=== PATIENT | male | born 1930 | race Caucasian/White ===

== ENCOUNTER 2016-05-04 08:07 | Inpatient (IN) | payer OTHER, MEDICARE ==
--- NOTE | 2016-05-04 09:05 | ER Document Report ---
ED Respiratory Problem - General Chief Complaint: Congestion Stated Complaint: CONGESTION Notes: The patient is an 86-year-old male, past medical history hypertension, hyperlipidemia, presents with 3 months of cough, congestion and shortness of breath. He saw his primary care physician was placed on azithromycin 2 weeks ago. He finished a course, but is now having productive sputum and subjective fevers. He denies chest pain, leg swelling, rash, abdominal pain, nausea, vomiting, headache or recent travel. TRAVEL OUTSIDE OF THE [place] IN LAST 30 DAYS: No - Related Data Allergies/Adverse Reactions: No Known Allergies Allergy (Unverified 05/04/16 08:12) Past Medical History - General Information source: Patient - Social History Smoking Status: Former Smoker Chew tobacco use (# tins/day): No Frequency of alcohol use: None Drug Abuse: None Family History: Reviewed & Not Pertinent Patient has suicidal ideation: No Patient has homicidal ideation: No - Past Medical History Cardiac Medical History: Reports: Hx Hypercholesterolemia, Hx Hypertension Renal/ Medical History: Denies: Hx Peritoneal Dialysis Surgical Hx: Negative Review of Systems - Review of Systems Notes: REVIEW OF SYSTEMS: CONSTITUTIONAL: +fevers, -chills EENT: -eye pain, -difficulty swallowing, +nasal congestion CARDIOVASCULAR:-chest pain, -syncope. RESPIRATORY: +cough, +SOB GASTROINTESTINAL: -abdominal pain, -nausea, -vomiting, -diarrhea GENITOURINARY: -dysuria, -hematuria MUSCULOSKELETAL: -back pain, -neck pain SKIN: -rash or skin lesions. HEMATOLOGIC: -easy bruising or bleeding. LYMPHATIC: -swollen, enlarged glands. NEUROLOGICAL: -altered mental status or loss of consciousness, -headache, - neurologic symptoms PSYCHIATRIC: -anxiety, -depression. ALL OTHER SYSTEMS REVIEWED AND NEGATIVE. Physical Exam - Vital signs Vitals: Temp Pulse Resp BP Pulse Ox 97.5 F 120 H 18 129/62 H 95 05/04/16 08:12 05/04/16 08:12 05/04/16 08:12 05/04/16 08:12 05/04/16 08:12 - Notes Notes: PHYSICAL EXAMINATION: GENERAL: Well-appearing, well-nourished and in no acute distress. HEAD: Atraumatic, normocephalic. EYES: Pupils equal round and reactive to light, extraocular movements intact, sclera anicteric, conjunctiva are normal. ENT: nares patent, oropharynx clear without exudates. Moist mucous membranes. NECK: Normal range of motion, supple without lymphadenopathy LUNGS: Crackles over RLL. No respiratory distress. HEART: Tachycardic. ABDOMEN: Soft, nontender, normoactive bowel sounds. No guarding, no rebound. No masses appreciated. EXTREMITIES: Normal range of motion, no pitting or edema. No cyanosis. NEUROLOGICAL: Cranial nerves grossly intact. Normal speech, normal gait. Normal sensory, motor, and reflex exams. PSYCH: Normal mood, normal affect. SKIN: Warm, Dry, normal turgor, no rashes or lesions noted. Course - Re-evaluation Re-evalutation: Patient with right-sided pneumonia, leukocytosis and tachycardia. No respiratory distress at this time. Troponin is 0.08, but EKG does not show any active ischemia and he is not having chest pain. Suspect that this may be related to his tachycardia or chronic in nature, since we do not have an old troponin level. We will trend to see if there is any acute ischemia occurring. Since patient failed an outpatient antibiotic treatment for his pneumonia, patient will require admission for IV antibiotics and further monitoring of his respiratory status. 05/04/16 10:31 Spoke to Sadia (Hospitalist) and she has accepted patient. - Vital Signs Vital signs: Temp Pulse Resp BP Pulse Ox 97.5 F 120 H 18 129/62 H 95 05/04/16 08:12 05/04/16 08:12 05/04/16 08:12 05/04/16 08:12 05/04/16 08:12 - Laboratory Result Diagrams: 05/04/16 08:47 05/04/16 08:47 Laboratory results interpreted by me: 05/04/16 05/04/16 08:47 08:47 WBC 19.3 H Seg Neuts % (Manual) 94 H Lymphocytes % (Manual) 2 L Abs Neuts (Manual) 18.1 H Abs Lymphs (Manual) 0.4 L Creatinine 1.28 H Est GFR (Non-Af Amer) 53 L Glucose 139 H Creatine Kinase 35 L - Diagnostic Test Radiology reviewed: Image reviewed, Reports reviewed Radiology results interpreted by me: CXR: Right-sided pneumonia. - EKG Interpretation by Me EKG shows normal: Sinus rhythm, Asher, Intervals, QRS Complexes, ST-T Waves Rate: Tachycardia Discharge - Discharge Clinical Impression: Pneumonia Qualifiers: Pneumonia type: due to unspecified organism Laterality: right Lung location: lower lobe of lung Qualified Code(s): J18.1 - Lobar pneumonia, unspecified organism Sepsis Qualifiers: Sepsis type: sepsis due to unspecified organism Qualified Code(s): A41.9 - Sepsis, unspecified organism Condition: Stable Disposition: ADMITTED INPATIENT Admitting Provider: Hospitalist - [facility] Admitted: Telemetry
[2016-05-04] MEDS ORDERED: NORMAL SALINE 1000 ML 1,000 ML IV ONE (09:29)
[2016-05-04 09:33] LABS: HEMATOCRIT 45.8 % (37.9-51.0); HEMOGLOBIN 15.3 g/dL (13.5-17.0); HGB HCT DIFFERENCE 0.1; MEAN CORPUSCULAR HEMOGLOBIN 30.1 pg (27.0-33.4); MEAN CORPUSCULAR HGB CONC 33.5 g/dL (32.0-36.0); MEAN CORPUSCULAR VOLUME 90 fl (80-97); RED BLOOD COUNT 5.08 10^6/uL (4.35-5.55); RED CELL DISTRIBUTION WIDTH 13.5 % (11.5-14.0); WHITE BLOOD COUNT 19.3 10^3/uL (4.0-10.5)
[2016-05-04 09:46] LABS: ANION GAP 13 (5-19); BLOOD UREA NITROGEN 15 mg/dL (7-20); CALCIUM 9.9 mg/dL (8.4-10.2); CARBON DIOXIDE 26 mmol/L (22-30); CHLORIDE 98 mmol/L (98-107); CREATINE KINASE 35 U/L (55-170); CREATININE RESULT 1.28 mg/dL (0.52-1.25); GLUCOSE 139 mg/dL (75-110); POTASSIUM 3.7 mmol/L (3.6-5.0); SODIUM 137.4 mmol/L (137-145)
[2016-05-04 09:51] LABS: BASOPHILS % (MANUAL) 0 % (0-2); EOSINOPHILS % (MANUAL) 0 % (0-6); LYMPHOCYTES % (MANUAL) 2 % (13-45); TOTAL CELLS COUNTED 100
[2016-05-04 09:52] LABS: OVALOCYTES 1+; POIKILOCYTOSIS 1+; TEAR DROP CELLS SLIGHT
[2016-05-04] MEDS ORDERED: CEFTRIAXONE INJ 1000 MG VIAL IV ONE (09:58)
[2016-05-04] MEDS ORDERED: AZITHROMYCIN INJ 500 MG VIAL IV ONE (09:58)
[2016-05-04] MEDS ORDERED: LEVOFLOXACIN 750 MG/D5W RTU 150 ML IV ONE (09:59)
[2016-05-04] MEDS ORDERED: IPRATROPIUM/ALBUTEROL 0.5-2.5 MG/3 ML AMPUL NEB PRN (10:44)
--- NOTE | 2016-05-04 11:12 | EKG REPORT ---
SEVERITY:- OTHERWISE NORMAL ECG - SINUS TACHYCARDIA : Confirmed by: Carina Workman 04-May-2016 11:12:24
[2016-05-04] MEDS: CEFTRIAXONE 1 GM/D5W RTU 1 GM/50 ML RTUPB IV SCH (12:18)
[2016-05-04] MEDS ORDERED: LEVOFLOXACIN 500 MG/D5W RTU 500 MG/100 ML RTUPB IV SCH (14:00)
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
[2016-05-04] MEDS: HEPARIN SOD (PORCINE) 5,000 UNIT/ML 1 ML SYRINGE SUBCUT SCH ×2 (15:34→21:57)
[2016-05-04] MEDS: IPRATROPIUM/ALBUTEROL 0.5-2.5 MG/3 ML AMPUL NEB SCH ×2 (16:20→23:49)
[2016-05-04 17:21] LABS: APPEARANCE,URINE CLEAR; BILIRUBIN,URINE NEGATIVE (NEGATIVE); GLUCOSE, URINE NEGATIVE (NEGATIVE); KETONES,URINE NEGATIVE (NEGATIVE); LEUKOCYTE ESTERASE,URINE NEGATIVE (NEGATIVE); NITRITE,URINE NEGATIVE (NEGATIVE); PROTEIN,URINE NEGATIVE (NEGATIVE); URINE SPECIFIC GRAVITY 1.006; UROBILINOGEN,URINE NEGATIVE mg/dL (<2.0)
[2016-05-04] MEDS: LANSOPRAZOLE 15 MG TAB.RAP.DR PO SCH (17:27)
[2016-05-04] MEDS: GUAIFENESIN 600 MG TABLET.SA PO SCH (21:57)
[2016-05-05] MEDS: HEPARIN SOD (PORCINE) 5,000 UNIT/ML 1 ML SYRINGE SUBCUT SCH ×3 (05:53→21:56)
[2016-05-05] MEDS: LANSOPRAZOLE 15 MG TAB.RAP.DR PO SCH ×2 (05:53→17:34)
[2016-05-05 06:49] LABS: HEMATOCRIT 40.9 % (37.9-51.0); HEMOGLOBIN 13.8 g/dL (13.5-17.0); HGB HCT DIFFERENCE 0.5; MEAN CORPUSCULAR HEMOGLOBIN 30.5 pg (27.0-33.4); MEAN CORPUSCULAR HGB CONC 33.8 g/dL (32.0-36.0); MEAN CORPUSCULAR VOLUME 90 fl (80-97); RED BLOOD COUNT 4.53 10^6/uL (4.35-5.55); RED CELL DISTRIBUTION WIDTH 13.9 % (11.5-14.0); WHITE BLOOD COUNT 15.1 10^3/uL (4.0-10.5)
[2016-05-05 06:53] LABS: ANION GAP 12 (5-19); BLOOD UREA NITROGEN 11 mg/dL (7-20); CARBON DIOXIDE 23 mmol/L (22-30); CHLORIDE 105 mmol/L (98-107); CREATININE RESULT 1.06 mg/dL (0.52-1.25); GLUCOSE 107 mg/dL (75-110); POTASSIUM 3.8 mmol/L (3.6-5.0); SODIUM 139.6 mmol/L (137-145)
[2016-05-05 07:10] LABS: BASOPHILS % (MANUAL) 0 % (0-2); EOSINOPHILS % (MANUAL) 0 % (0-6); LYMPHOCYTES % (MANUAL) 5 % (13-45); TOTAL CELLS COUNTED 100
[2016-05-05 07:15] LABS: RBC MORPHOLOGY COMMENT NORMO-CYTIC/CHROMIC; TOXIC GRANULATION SLIGHT
[2016-05-05] MEDS: IPRATROPIUM/ALBUTEROL 0.5-2.5 MG/3 ML AMPUL NEB SCH ×2 (08:46→16:34)
[2016-05-05] MEDS: NIFEDIPINE 30 MG TAB.ER.24 PO SCH ×2 (09:17→21:55)
[2016-05-05] MEDS: GUAIFENESIN 600 MG TABLET.SA PO SCH ×2 (09:18→21:55)
[2016-05-05] MEDS: LISINOPRIL 10 MG TABLET PO SCH ×2 (09:18→21:55)
[2016-05-05] MEDS ORDERED: (PENDING PHARMACY ID) (Nifedipine [Nifedipine Er] 60 MG) PO SCH (10:00)
[2016-05-05] MEDS ORDERED: (PENDING PHARMACY ID) (Lisinopril [Prinivil] 20 MG) PO SCH (10:00)
[2016-05-05] MEDS: CEFTRIAXONE 1 GM/D5W RTU 1 GM/50 ML RTUPB IV SCH (11:51)
--- NOTE | 2016-05-05 15:14 | PDOC PROGRESS REPORT ---
Subjective Progress Note for:: 05/05/16 Subjective:: Patient is seen on morning rounds. He denies any significant shortness of breath. He does have a productive cough. Denies any fever or chills. He denies any chest pain, dizziness or headache. Denies any nausea, vomiting, or diarrhea. He denies any back pain, myalgias or arthralgias. Rest review of systems negative. Physical Exam Vital Signs: Temp Pulse Resp BP Pulse Ox 97.6 F 110 H 18 167/74 H 96 05/05/16 12:41 05/05/16 12:41 05/05/16 12:41 05/05/16 12:41 05/05/16 12:41 Intake & Output 05/04/16 05/05/16 05/06/16 06:59 06:59 06:59 Intake Total 1165 300 Output Total 600 200 Balance 565 100 Weight 64 kg General appearance: PRESENT: no acute distress, well-developed, well-nourished Head exam: PRESENT: atraumatic, normocephalic Eye exam: PRESENT: conjunctiva pink, EOMI, PERRLA. ABSENT: scleral icterus Ear exam: PRESENT: normal external ear exam Mouth exam: PRESENT: moist, tongue midline Neck exam: ABSENT: carotid bruit, JVD, lymphadenopathy, thyromegaly Respiratory exam: PRESENT: clear to auscultation edmundo. ABSENT: rales, rhonchi, wheezes Cardiovascular exam: PRESENT: RRR. ABSENT: diastolic murmur, rubs, systolic murmur Pulses: PRESENT: normal dorsalis pedis pul Vascular exam: PRESENT: normal capillary refill GI/Abdominal exam: PRESENT: normal bowel sounds, soft. ABSENT: distended, guarding, mass, organolmegaly, rebound, tenderness Rectal exam: PRESENT: deferred Extremities exam: PRESENT: full ROM. ABSENT: calf tenderness, clubbing, pedal edema Neurological exam: PRESENT: alert, awake, oriented to person, oriented to place , oriented to time, oriented to situation, CN II-XII grossly intact. ABSENT: motor sensory deficit Psychiatric exam: PRESENT: appropriate affect, normal mood. ABSENT: homicidal ideation, suicidal ideation Skin exam: PRESENT: dry, intact, warm. ABSENT: cyanosis, rash Results Laboratory Results: 05/05/16 06:04 05/05/16 06:04 05/04/16 05/05/16 05/05/16 16:57 06:04 06:04 WBC 15.1 H RBC 4.53 Hgb 13.8 Hct 40.9 MCV 90 MCH 30.5 MCHC 33.8 RDW 13.9 Plt Count 199 Seg Neutrophils % Not Reportable Lymphocytes % Not Reportable Monocytes % Not Reportable Eosinophils % Not Reportable Basophils % Not Reportable Absolute Neutrophils Not Reportable Absolute Lymphocytes Not Reportable Absolute Monocytes Not Reportable Absolute Eosinophils Not Reportable Absolute Basophils Not Reportable Sodium 139.6 Potassium 3.8 Chloride 105 Carbon Dioxide 23 Anion Gap 12 BUN 11 Creatinine 1.06 Est GFR ( Amer) > 60 Est GFR (Non-Af Amer) > 60 Glucose 107 Calcium 9.0 Urine Color STRAW Urine Appearance CLEAR Urine pH 6.0 Ur Specific [place] 1.006 Urine Protein NEGATIVE Urine Glucose (UA) NEGATIVE Urine Ketones NEGATIVE Urine Blood NEGATIVE Urine Nitrite NEGATIVE Ur Leukocyte Esterase NEGATIVE Urine WBC (Auto) 1 Urine RBC (Auto) 0 Impressions: Chest X-Ray 05/04/16 09:04 IMPRESSION: Airspace consolidation in the right mid and lower lung field with an associated small right pleural effusion. The appearance is consistent with a pneumonic infiltrate. I would recommend followup films to complete clearing to exclude an underlying process. Other findings as noted above Assessment & Plan - Diagnosis (1) Pneumonia Qualifiers: Pneumonia type: due to unspecified organism Laterality: right Lung location: lower lobe of lung Qualified Code(s): J18.1 - Lobar pneumonia, unspecified organism Is this a current diagnosis for this admission?: YesPlan: IV broad spectrum antibiotics, IV steroids, guafenisin, and nebulizer treatments. Blood cultures and sputum cultures pending (2) Sepsis Qualifiers: Sepsis type: sepsis due to unspecified organism Qualified Code(s): A41.9 - Sepsis, unspecified organism Is this a current diagnosis for this admission?: YesPlan: Patient presents with tachycardia, mild tachypnea, leukocytosis, and hypoxemia. He had been on a ten-day course of azithromycin prior to admission. Blood and sputum cultures are pending. Tachycardia, hypotension and hypoxemia have resolved. (3) Dyslipidemia Is this a current diagnosis for this admission?: YesPlan: Continue statin (4) Essential (primary) hypertension Is this a current diagnosis for this admission?: YesPlan: Continue current medications he is presently normotensive we'll hold diuretic - Time Time Spent with patient: 25-34 minutes Critical Time spent with patient: 15-24 minutes Medications reviewed and adjusted accordingly: Yes Anticipated discharge: Home
[2016-05-05] MEDS: LEVOFLOXACIN 250 MG TABLET PO SCH (17:34)
[2016-05-05] MEDS: SIMVASTATIN 40 MG TABLET PO SCH (17:34)
[2016-05-05] MEDS: NORMAL SALINE 1000 ML 1,000 ML IV PRN (22:57)
[2016-05-06] MEDS: IPRATROPIUM/ALBUTEROL 0.5-2.5 MG/3 ML AMPUL NEB SCH ×3 (00:12→16:16)
[2016-05-06] MEDS: BENZONATATE 100 MG CAPSULE PO PRN ×2 (03:59→15:47)
[2016-05-06] MEDS: LANSOPRAZOLE 15 MG TAB.RAP.DR PO SCH ×2 (05:25→16:00)
[2016-05-06] MEDS: HEPARIN SOD (PORCINE) 5,000 UNIT/ML 1 ML SYRINGE SUBCUT SCH ×3 (05:25→21:17)
[2016-05-06 06:07] LABS: HEMATOCRIT 40.1 % (37.9-51.0); HEMOGLOBIN 13.6 g/dL (13.5-17.0); HGB HCT DIFFERENCE 0.7; MEAN CORPUSCULAR HEMOGLOBIN 30.5 pg (27.0-33.4); MEAN CORPUSCULAR HGB CONC 33.9 g/dL (32.0-36.0); MEAN CORPUSCULAR VOLUME 90 fl (80-97); RED BLOOD COUNT 4.46 10^6/uL (4.35-5.55); RED CELL DISTRIBUTION WIDTH 13.7 % (11.5-14.0); WHITE BLOOD COUNT 16.3 10^3/uL (4.0-10.5)
[2016-05-06 06:38] LABS: BASOPHILS % (MANUAL) 0 % (0-2); EOSINOPHILS % (MANUAL) 0 % (0-6); LYMPHOCYTES % (MANUAL) 2 % (13-45); TOTAL CELLS COUNTED 100
[2016-05-06 06:39] LABS: RBC MORPHOLOGY COMMENT NORMO-CYTIC/CHROMIC
[2016-05-06] MEDS: GUAIFENESIN 600 MG TABLET.SA PO SCH ×2 (10:26→21:17)
[2016-05-06] MEDS: ACETAMINOPHEN 325 MG TABLET PO PRN ×2 (10:27→15:46)
[2016-05-06] MEDS: NIFEDIPINE 30 MG TAB.ER.24 PO SCH ×2 (10:27→21:17)
[2016-05-06] MEDS: LISINOPRIL 10 MG TABLET PO SCH ×2 (10:27→21:17)
[2016-05-06] MEDS ORDERED: HYDROCORTISONE 1% OINTMENT 28.35 GM TP PRN (11:13)
[2016-05-06] MEDS ORDERED: MORPHINE SULFATE 10 MG/ML INJ IV ONE (13:00)
--- NOTE | 2016-05-06 15:53 | PDOC PROGRESS REPORT ---
Subjective Progress Note for:: 05/06/16 Subjective:: Patient is seen on morning rounds. He denies any significant shortness of breath. He does have a productive cough. Denies any fever or chills. He denies any chest pain, dizziness or headache. He continues to have diminished breath sounds on the right no improvement with antibiotics. Repeat chest x-ray today shows collapse of the right lower lobe, with pleural effusion. Certainly concerned there could be an endobronchial obstruction or lesion. Patient does admit to a 10-15 pound weight loss over the last 3 months with this cough. [address] of the chest was obtained with IV contrast which showed complete collapse of the right lower lobe, approximately thousand cc plural effusion. Physical Exam Vital Signs: Temp Pulse Resp BP Pulse Ox 98.0 F 112 H 28 H 151/65 H 91 L 05/06/16 11:46 05/06/16 11:46 05/06/16 11:46 05/06/16 11:46 05/06/16 11:46 Intake & Output 05/05/16 05/06/16 05/07/16 06:59 06:59 06:59 Intake Total 1165 3004 270 Output Total 600 1190 150 Balance 565 1814 120 Weight 64 kg 64.7 kg General appearance: PRESENT: no acute distress, well-developed, well-nourished Head exam: PRESENT: atraumatic, normocephalic Eye exam: PRESENT: conjunctiva pink, EOMI, PERRLA. ABSENT: scleral icterus Ear exam: PRESENT: normal external ear exam Mouth exam: PRESENT: moist, tongue midline Neck exam: ABSENT: carotid bruit, JVD, lymphadenopathy, thyromegaly Respiratory exam: PRESENT: decreased breath sounds - right lower hemithorax. ABSENT: rales, rhonchi, wheezes Cardiovascular exam: PRESENT: bradycardia Pulses: PRESENT: normal dorsalis pedis pul Vascular exam: PRESENT: normal capillary refill GI/Abdominal exam: PRESENT: normal bowel sounds, soft. ABSENT: distended, guarding, mass, organolmegaly, rebound, tenderness Rectal exam: PRESENT: deferred Extremities exam: PRESENT: full ROM. ABSENT: calf tenderness, clubbing, pedal edema Neurological exam: PRESENT: alert, awake, oriented to person, oriented to place , oriented to time, oriented to situation, CN II-XII grossly intact. ABSENT: motor sensory deficit Psychiatric exam: PRESENT: appropriate affect, normal mood. ABSENT: homicidal ideation, suicidal ideation Skin exam: PRESENT: dry, intact, warm. ABSENT: cyanosis, rash Results Laboratory Results: 05/06/16 05:27 05/05/16 06:04 05/06/16 05:27 WBC 16.3 H RBC 4.46 Hgb 13.6 Hct 40.1 MCV 90 MCH 30.5 MCHC 33.9 RDW 13.7 Plt Count 212 Seg Neutrophils % Not Reportable Lymphocytes % Not Reportable Monocytes % Not Reportable Eosinophils % Not Reportable Basophils % Not Reportable Absolute Neutrophils Not Reportable Absolute Lymphocytes Not Reportable Absolute Monocytes Not Reportable Absolute Eosinophils Not Reportable Absolute Basophils Not Reportable Impressions: Chest X-Ray 05/06/16 00:00 IMPRESSION: Dense consolidation in the right lower lobe superior segment. Underlying lung mass or endobronchial lesion could not be excluded. Right pleural effusion. Recommend CT chest with IV contrast if possible Chest CT 05/06/16 11:03 IMPRESSION: Extensive airspace disease in the right lung. Subpulmonic pleural effusion. Assessment & Plan - Diagnosis (1) Pneumonia Qualifiers: Pneumonia type: due to unspecified organism Laterality: right Lung location: lower lobe of lung Qualified Code(s): J18.1 - Lobar pneumonia, unspecified organism Is this a current diagnosis for this admission?: YesPlan: IV broad spectrum antibiotics, IV steroids, guafenisin, and nebulizer treatments. Blood cultures are negative at 48 hours. Has not had a fever. Certainly this could be postobstructive endobronchial tumor. Patient will need to undergo bronchoscopy for diagnosis. Patient does not wish transfer out of town for the weekend. We'll consult pulmonary here. (2) Sepsis Qualifiers: Sepsis type: sepsis due to unspecified organism Qualified Code(s): A41.9 - Sepsis, unspecified organism Is this a current diagnosis for this admission?: YesPlan: Patient presents with tachycardia, mild tachypnea, leukocytosis, and hypoxemia. He had been on a ten-day course of azithromycin prior to admission. Blood and sputum cultures are pending. Tachycardia, hypotension and hypoxemia have resolved. (3) Dyslipidemia Is this a current diagnosis for this admission?: YesPlan: Continue statin (4) Essential (primary) hypertension Is this a current diagnosis for this admission?: YesPlan: Continue current medications he is presently normotensive we'll hold diuretic - Time Time Spent with patient: 25-34 minutes Critical Time spent with patient: 15-24 minutes Medications reviewed and adjusted accordingly: Yes
[2016-05-06] MEDS: MORPHINE SULFATE 10 MG/ML INJ IV PRN ×2 (16:00→23:02)
[2016-05-06] MEDS: SIMVASTATIN 40 MG TABLET PO SCH (17:28)
[2016-05-06] MEDS: LEVOFLOXACIN 250 MG TABLET PO SCH (17:28)
[2016-05-06] MEDS: TRAZODONE HCL 50 MG TABLET PO SCH (21:17)
[2016-05-07] MEDS: IPRATROPIUM/ALBUTEROL 0.5-2.5 MG/3 ML AMPUL NEB SCH ×4 (00:09→23:40)
[2016-05-07] MEDS: NORMAL SALINE 1000 ML 1,000 ML IV PRN (00:16)
[2016-05-07] MEDS: HEPARIN SOD (PORCINE) 5,000 UNIT/ML 1 ML SYRINGE SUBCUT SCH ×3 (05:10→22:15)
[2016-05-07] MEDS: LANSOPRAZOLE 15 MG TAB.RAP.DR PO SCH ×2 (05:10→17:13)
[2016-05-07] MEDS ORDERED: LEVOFLOXACIN 250 MG TABLET PO SCH (09:02)
[2016-05-07] MEDS: GUAIFENESIN 600 MG TABLET.SA PO SCH ×2 (09:19→22:15)
[2016-05-07] MEDS: NIFEDIPINE 30 MG TAB.ER.24 PO SCH ×2 (09:19→22:15)
[2016-05-07] MEDS: LISINOPRIL 10 MG TABLET PO SCH ×2 (09:19→22:15)
[2016-05-07] MEDS ORDERED: POLYETHYLENE GLYCOL 3350 POWDER 17 GM/1 PACKET PO PRN (09:25)
--- NOTE | 2016-05-07 09:54 | PDOC PROGRESS REPORT ---
Subjective Progress Note for:: 05/07/16 Subjective:: Patient is seen on morning rounds. He denies any significant shortness of breath. He is no longer coughing productively. Denies any fever or chills. He denies any chest pain, dizziness or headache. He continues to have diminished breath sounds on the right no improvement with antibiotics. Repeat chest x-ray yesterday showed collapse of the right lower lobe, with pleural effusion. Certainly concerned there could be an endobronchial obstruction or lesion. Patient does admit to a 10-15 pound weight loss over the last 3 months with this cough. CT of the chest was obtained with IV contrast which showed complete collapse of the right lower lobe, with approximately thousand cc plural effusion. Physical Exam Vital Signs: Temp Pulse Resp BP Pulse Ox 98.3 F 110 H 24 H 134/58 H 91 L 05/07/16 07:52 05/07/16 07:52 05/07/16 07:52 05/07/16 07:52 05/07/16 07:52 Intake & Output 05/06/16 05/07/16 05/08/16 06:59 06:59 06:59 Intake Total 3004 1325 Output Total 1190 625 Balance 1814 700 Weight 64.7 kg 68.3 kg General appearance: PRESENT: no acute distress, thin, well-developed Head exam: PRESENT: atraumatic, normocephalic Eye exam: PRESENT: conjunctiva pink, EOMI, PERRLA. ABSENT: scleral icterus Ear exam: PRESENT: normal external ear exam Mouth exam: PRESENT: moist, tongue midline Neck exam: ABSENT: carotid bruit, JVD, lymphadenopathy, thyromegaly Respiratory exam: PRESENT: chest wall tenderness - right base, decreased breath sounds, rhonchi, unlabored Cardiovascular exam: PRESENT: RRR. ABSENT: diastolic murmur, rubs, systolic murmur Pulses: PRESENT: normal dorsalis pedis pul Vascular exam: PRESENT: normal capillary refill GI/Abdominal exam: PRESENT: normal bowel sounds, soft. ABSENT: distended, guarding, mass, organolmegaly, rebound, tenderness Rectal exam: PRESENT: deferred Extremities exam: PRESENT: full ROM. ABSENT: calf tenderness, clubbing, pedal edema Musculoskeletal exam: PRESENT: ambulatory Neurological exam: PRESENT: alert, awake, oriented to person, oriented to place , oriented to time, oriented to situation, CN II-XII grossly intact. ABSENT: motor sensory deficit Psychiatric exam: PRESENT: appropriate affect, normal mood. ABSENT: homicidal ideation, suicidal ideation Skin exam: PRESENT: dry, intact, warm. ABSENT: cyanosis, rash Results Laboratory Results: 05/06/16 05:27 05/05/16 06:04 Impressions: Chest X-Ray 05/06/16 00:00 IMPRESSION: Dense consolidation in the right lower lobe superior segment. Underlying lung mass or endobronchial lesion could not be excluded. Right pleural effusion. Recommend CT chest with IV contrast if possible Chest CT 05/06/16 11:03 IMPRESSION: Extensive airspace disease in the right lung. Subpulmonic pleural effusion. Assessment & Plan - Diagnosis (1) Pneumonia Qualifiers: Pneumonia type: due to unspecified organism Laterality: right Lung location: lower lobe of lung Qualified Code(s): J18.1 - Lobar pneumonia, unspecified organism Is this a current diagnosis for this admission?: YesPlan: Blood cultures are negative, no sputum culture as of yet. Covered with IV broad spectrum antibiotics, deescalated to levaquin po, steroids, guafenisin, and nebulizer treatments. Has not had a fever. Patient will likely need to undergo bronchoscopy. Pulmonary consult placed for Dr Menjivar. Patient does not wish transfer out of [facility] for care. (2) Sepsis Qualifiers: Sepsis type: sepsis due to unspecified organism Qualified Code(s): A41.9 - Sepsis, unspecified organism Is this a current diagnosis for this admission?: YesPlan: Patient presents with tachycardia, mild tachypnea, leukocytosis, and hypoxemia. He had been on a ten-day course of azithromycin prior to admission. Blood are negative. Tachycardia, hypotension and hypoxemia have resolved. (3) Dyslipidemia Is this a current diagnosis for this admission?: YesPlan: Continue statin (4) Essential (primary) hypertension Is this a current diagnosis for this admission?: YesPlan: Continue current medications he is presently normotensive we'll hold diuretic - Time Time Spent with patient: 25-34 minutes Critical Time spent with patient: 15-24 minutes Medications reviewed and adjusted accordingly: Yes
[2016-05-07] MEDS ORDERED: BISACODYL 10 MG SUPP.RECT PR ONE (10:15)
[2016-05-07] MEDS: DOCUSATE SODIUM 100 MG CAPSULE PO SCH ×2 (10:25→17:13)
[2016-05-07] MEDS: ACETAMINOPHEN 325 MG TABLET PO PRN ×2 (11:43→17:13)
[2016-05-07] MEDS: SIMVASTATIN 40 MG TABLET PO SCH (17:13)
[2016-05-07] MEDS: LEVOFLOXACIN 500 MG TABLET PO SCH (17:13)
[2016-05-07] MEDS: TRAZODONE HCL 50 MG TABLET PO SCH (22:15)
[2016-05-07] MEDS: BENZONATATE 100 MG CAPSULE PO PRN (22:40)
[2016-05-08 05:19] LABS: HEMATOCRIT 37.5 % (37.9-51.0); HEMOGLOBIN 12.7 g/dL (13.5-17.0); HGB HCT DIFFERENCE 0.6; MEAN CORPUSCULAR HEMOGLOBIN 30.2 pg (27.0-33.4); MEAN CORPUSCULAR VOLUME 89 fl (80-97); RED BLOOD COUNT 4.22 10^6/uL (4.35-5.55); RED CELL DISTRIBUTION WIDTH 14.1 % (11.5-14.0); WHITE BLOOD COUNT 15.9 10^3/uL (4.0-10.5)
[2016-05-08] MEDS: HEPARIN SOD (PORCINE) 5,000 UNIT/ML 1 ML SYRINGE SUBCUT SCH ×3 (05:22→21:43)
[2016-05-08] MEDS: LANSOPRAZOLE 15 MG TAB.RAP.DR PO SCH ×2 (05:22→17:09)
[2016-05-08 05:23] LABS: ALANINE AMINOTRANSFERASE 26 U/L (21-72); ALBUMIN 2.6 g/dL (3.5-5.0); ALKALINE PHOSPHATASE 90 U/L (38-126); ANION GAP 12 (5-19); ASPARTATE AMINO TRANSFERASE 29 U/L (17-59); BILIRUBIN,TOTAL 0.6 mg/dL (0.2-1.3); BLOOD UREA NITROGEN 22 mg/dL (7-20); CALCIUM 9.2 mg/dL (8.4-10.2); CARBON DIOXIDE 23 mmol/L (22-30); CHLORIDE 103 mmol/L (98-107); CREATININE RESULT 1.24 mg/dL (0.52-1.25); GLUCOSE 107 mg/dL (75-110); POTASSIUM 3.7 mmol/L (3.6-5.0); SODIUM 137.7 mmol/L (137-145); TOTAL PROTEIN 4.8 g/dL (6.3-8.2)
[2016-05-08] MEDS: ACETAMINOPHEN 325 MG TABLET PO PRN (05:30)
[2016-05-08 06:43] LABS: BASOPHILS % (MANUAL) 0 % (0-2); EOSINOPHILS % (MANUAL) 0 % (0-6); LYMPHOCYTES % (MANUAL) 2 % (13-45); TOTAL CELLS COUNTED 100
[2016-05-08 06:44] LABS: ANISOCYTOSIS SLIGHT; BURR CELLS SLIGHT; OVALOCYTES SLIGHT; POIKILOCYTOSIS SLIGHT; TOXIC GRANULATION SLIGHT; TOXIC VACUOLATION PRESENT
[2016-05-08] MEDS: IPRATROPIUM/ALBUTEROL 0.5-2.5 MG/3 ML AMPUL NEB SCH ×3 (08:09→23:59)
[2016-05-08] MEDS: DOCUSATE SODIUM 100 MG CAPSULE PO SCH ×2 (09:15→17:09)
[2016-05-08] MEDS: LISINOPRIL 10 MG TABLET PO SCH ×2 (09:16→21:43)
[2016-05-08] MEDS: GUAIFENESIN 600 MG TABLET.SA PO SCH ×2 (09:16→21:43)
[2016-05-08] MEDS: NIFEDIPINE 30 MG TAB.ER.24 PO SCH ×2 (09:16→21:43)
--- NOTE | 2016-05-08 09:55 | PDOC PROGRESS REPORT ---
Subjective Progress Note for:: 05/08/16 Subjective:: Patient is seen on morning rounds. He denies any significant shortness of breath. He is no longer coughing productively. Denies any fever or chills. He denies any chest pain, dizziness or headache. He continues to have diminished breath sounds on the right no improvement with antibiotics. He states he actually had more of appetite this morning. He admits to not having any over the last few weeks. Repeat chest x-ray yesterday showed collapse of the right lower lobe, with pleural effusion. Certainly concerned there could be an endobronchial obstruction or tumor, in former smoker Patient does admit to a 10-15 pound weight loss over the last 3 months with this cough. CT of the chest was obtained with IV contrast which showed complete collapse of the right lower lobe, with an approximately thousand cc pleural effusion. Physical Exam Vital Signs: Temp Pulse Resp BP Pulse Ox 97.7 F 103 H 24 H 131/52 H 90 L 05/08/16 08:06 05/08/16 08:12 05/08/16 08:12 05/08/16 08:06 05/08/16 08:12 Intake & Output 05/07/16 05/08/16 05/09/16 06:59 06:59 06:59 Intake Total 1325 1470 Output Total 625 775 Balance 700 695 Weight 68.3 kg 71.1 kg General appearance: PRESENT: no acute distress, thin, well-developed Head exam: PRESENT: atraumatic, normocephalic Eye exam: PRESENT: conjunctiva pink, EOMI, PERRLA. ABSENT: scleral icterus Ear exam: PRESENT: normal external ear exam Mouth exam: PRESENT: moist, tongue midline Neck exam: ABSENT: carotid bruit, JVD, lymphadenopathy, thyromegaly Respiratory exam: PRESENT: decreased breath sounds - Right lower hemithorax, symmetrical, unlabored Cardiovascular exam: PRESENT: RRR. ABSENT: diastolic murmur, rubs, systolic murmur Pulses: PRESENT: normal carotid pulses Vascular exam: PRESENT: normal capillary refill GI/Abdominal exam: PRESENT: normal bowel sounds, soft. ABSENT: distended, guarding, mass, organolmegaly, rebound, tenderness Rectal exam: PRESENT: deferred Extremities exam: PRESENT: full ROM. ABSENT: calf tenderness, clubbing, pedal edema Neurological exam: PRESENT: alert, awake, oriented to person, oriented to place , oriented to time, oriented to situation, CN II-XII grossly intact. ABSENT: motor sensory deficit Psychiatric exam: PRESENT: appropriate affect, normal mood. ABSENT: homicidal ideation, suicidal ideation Skin exam: PRESENT: dry, intact, warm. ABSENT: cyanosis, rash Results Laboratory Results: 05/08/16 04:32 05/08/16 04:32 05/08/16 05/08/16 04:32 04:32 WBC 15.9 H RBC 4.22 L Hgb 12.7 L Hct 37.5 L MCV 89 MCH 30.2 MCHC 34.0 RDW 14.1 H Plt Count 225 Seg Neutrophils % Not Reportable Lymphocytes % Not Reportable Monocytes % Not Reportable Eosinophils % Not Reportable Basophils % Not Reportable Absolute Neutrophils Not Reportable Absolute Lymphocytes Not Reportable Absolute Monocytes Not Reportable Absolute Eosinophils Not Reportable Absolute Basophils Not Reportable Sodium 137.7 Potassium 3.7 Chloride 103 Carbon Dioxide 23 Anion Gap 12 BUN 22 H Creatinine 1.24 Est GFR ( Amer) > 60 Est GFR (Non-Af Amer) 55 L Glucose 107 Calcium 9.2 Total Bilirubin 0.6 AST 29 ALT 26 Alkaline Phosphatase 90 Total Protein 4.8 L Albumin 2.6 L Impressions: Chest X-Ray 05/06/16 00:00 IMPRESSION: Dense consolidation in the right lower lobe superior segment. Underlying lung mass or endobronchial lesion could not be excluded. Right pleural effusion. Recommend CT chest with IV contrast if possible Chest CT 05/06/16 11:03 IMPRESSION: Extensive airspace disease in the right lung. Subpulmonic pleural effusion. Assessment & Plan - Diagnosis (1) Pneumonia Qualifiers: Pneumonia type: due to unspecified organism Laterality: right Lung location: lower lobe of lung Qualified Code(s): J18.1 - Lobar pneumonia, unspecified organism Is this a current diagnosis for this admission?: YesPlan: Post obstructive right lower lobe. Endobronchial obstruction/? tumor. Blood cultures are negative, no sputum culture as of yet. Covered with IV broad spectrum antibiotics, deescalated to levaquin po, steroids, guafenisin, and nebulizer treatments. Has not had a fever. Patient will need to undergo bronchoscopy for diagnosis. Pulmonary consult placed for Dr Menjivar. Patient does not wish transfer out of [facility] for care. (2) Sepsis Qualifiers: Sepsis type: sepsis due to unspecified organism Qualified Code(s): A41.9 - Sepsis, unspecified organism Is this a current diagnosis for this admission?: YesPlan: Patient presents with tachycardia, mild tachypnea, leukocytosis, and hypoxemia. He had been on a ten-day course of azithromycin prior to admission. Blood are negative. Tachycardia, hypotension and hypoxemia have resolved. (3) Dyslipidemia Is this a current diagnosis for this admission?: YesPlan: Continue statin (4) Essential (primary) hypertension Is this a current diagnosis for this admission?: YesPlan: Continue current medications he is presently normotensive we'll hold diuretic - Time Time Spent with patient: 25-34 minutes Medications reviewed and adjusted accordingly: Yes Anticipated discharge: Home with Homehealth
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
[2016-05-08] MEDS: MORPHINE SULFATE 10 MG/ML INJ IV PRN (14:11)
[2016-05-08] MEDS: LEVOFLOXACIN 500 MG TABLET PO SCH (17:09)
[2016-05-08] MEDS: SIMVASTATIN 40 MG TABLET PO SCH (17:09)
[2016-05-08] MEDS: TRAZODONE HCL 50 MG TABLET PO SCH (21:43)
[2016-05-08] MEDS ORDERED: ZOLPIDEM TARTRATE 5 MG TABLET PO ONE ×2 (23:30→23:45)
[2016-05-09] MEDS: HEPARIN SOD (PORCINE) 5,000 UNIT/ML 1 ML SYRINGE SUBCUT SCH ×3 (05:38→21:32)
[2016-05-09] MEDS: LANSOPRAZOLE 15 MG TAB.RAP.DR PO SCH ×2 (05:38→17:11)
[2016-05-09] MEDS: IPRATROPIUM/ALBUTEROL 0.5-2.5 MG/3 ML AMPUL NEB SCH ×2 (08:08→15:39)
[2016-05-09] MEDS ORDERED: ALBUTEROL SULFATE 0.083% NEB 2.5 MG/3 ML AMPUL NEB PRN (08:32)
[2016-05-09] MEDS ORDERED: LIDOCAINE 4% INJ/PF (40 MG/ML) 5 ML AMPUL INJ PRN (08:33)
[2016-05-09 09:10] LABS: HEMOGLOBIN 13.9 g/dL (13.5-17.0); HGB HCT DIFFERENCE 0.7; MEAN CORPUSCULAR HEMOGLOBIN 30.3 pg (27.0-33.4); MEAN CORPUSCULAR HGB CONC 33.9 g/dL (32.0-36.0); MEAN CORPUSCULAR VOLUME 89 fl (80-97); RED CELL DISTRIBUTION WIDTH 13.7 % (11.5-14.0)
[2016-05-09 09:22] LABS: ANION GAP 13 (5-19); BLOOD UREA NITROGEN 20 mg/dL (7-20); CALCIUM 9.3 mg/dL (8.4-10.2); CARBON DIOXIDE 24 mmol/L (22-30); CHLORIDE 101 mmol/L (98-107); CREATININE RESULT 1.07 mg/dL (0.52-1.25); GLUCOSE 104 mg/dL (75-110); POTASSIUM 3.8 mmol/L (3.6-5.0); SODIUM 137.7 mmol/L (137-145)
[2016-05-09 09:29] LABS: BASOPHILS % (MANUAL) 0 % (0-2); EOSINOPHILS % (MANUAL) 0 % (0-6); LYMPHOCYTES % (MANUAL) 2 % (13-45); PLATELET CLUMPS PRESENT; POLYCHROMASIA SLIGHT; TOTAL CELLS COUNTED 100; TOXIC GRANULATION 1+
[2016-05-09] MEDS: LISINOPRIL 10 MG TABLET PO SCH ×2 (09:36→21:33)
[2016-05-09] MEDS: DOCUSATE SODIUM 100 MG CAPSULE PO SCH ×2 (09:36→17:11)
[2016-05-09] MEDS: NIFEDIPINE 30 MG TAB.ER.24 PO SCH ×2 (09:36→21:34)
[2016-05-09] MEDS: GUAIFENESIN 600 MG TABLET.SA PO SCH ×2 (09:36→21:34)
[2016-05-09 11:20] LABS: PROTHROMBIN TIME 14.5 SEC (11.4-15.4)
--- NOTE | 2016-05-09 13:30 | PDOC PROGRESS REPORT ---
Subjective Progress Note for:: 05/09/16 Subjective:: The patient was seen earlier today on rounds. The patient states that he does feel better than yesterday. Dyspnea has improved however the patient still has a strong cough. The patient denies any nausea, vomiting, diarrhea, dizziness, chest pain, heart palpitations, fevers, or chills although I am uncertain of how reliable this history is given that the patient easily answers yes to all questions. The patient has remained afebrile. Blood pressures have been in a good range. When prompted the patient voices no other concerns at this time. Review of systems: The rest of the review of systems is negative. Physical Exam Vital Signs: Temp Pulse Resp BP Pulse Ox 97.6 F 116 H 20 142/64 H 89 L 05/09/16 11:29 05/09/16 11:29 05/09/16 11:29 05/09/16 11:29 05/09/16 11:29 Intake & Output 05/07/16 05/08/16 05/09/16 23:59 23:59 23:59 Intake Total 1620 600 700 Output Total 875 575 500 Balance 745 25 200 Weight 68.3 kg 71.1 kg 71.8 kg General appearance: PRESENT: cooperative, disheveled, thin Exam: Frail, chronically ill-appearing Head exam: PRESENT: atraumatic, normocephalic Eye exam: PRESENT: conjunctiva pale, PERRLA. ABSENT: scleral icterus Ear exam: PRESENT: normal external ear exam Mouth exam: PRESENT: moist, tongue midline Neck exam: ABSENT: JVD, thyromegaly, tracheal deviation, tracheostomy Respiratory exam: PRESENT: rhonchi, symmetrical, unlabored. ABSENT: tachypnea Cardiovascular exam: PRESENT: RRR. ABSENT: bradycardia, irregular rhythm, tachycardia Pulses: PRESENT: +1 pedal pulses bilateral Vascular exam: PRESENT: pallor GI/Abdominal exam: PRESENT: normal bowel sounds, soft. ABSENT: ascites, distended, firm, guarding, rebound, tenderness Rectal exam: PRESENT: deferred Extremities exam: ABSENT: clubbing, joint swelling, pedal edema, tenderness Musculoskeletal exam: PRESENT: ambulatory Neurological exam: PRESENT: alert, altered, oriented to person, oriented to place Psychiatric exam: PRESENT: appropriate affect - a little delayed, normal mood Skin exam: PRESENT: intact, pallor. ABSENT: jaundice, mottled Results Laboratory Results: 05/09/16 08:50 05/09/16 08:50 05/09/16 05/09/16 08:50 08:50 WBC 15.0 H RBC 4.60 Hgb 13.9 Hct 41.0 MCV 89 MCH 30.3 MCHC 33.9 RDW 13.7 Plt Count 239 Seg Neutrophils % Not Reportable Lymphocytes % Not Reportable Monocytes % Not Reportable Eosinophils % Not Reportable Basophils % Not Reportable Absolute Neutrophils Not Reportable Absolute Lymphocytes Not Reportable Absolute Monocytes Not Reportable Absolute Eosinophils Not Reportable Absolute Basophils Not Reportable Sodium 137.7 Potassium 3.8 Chloride 101 Carbon Dioxide 24 Anion Gap 13 BUN 20 Creatinine 1.07 Est GFR ( Amer) > 60 Est GFR (Non-Af Amer) > 60 Glucose 104 Calcium 9.3 05/07/16 14:15 Sputum Gram Stain - Final 05/07/16 14:15 Sputum Sputum Culture - Final C.albicans/C.dubliniensis Greatly Reduced Normal Astrid Impressions: Chest X-Ray 05/06/16 00:00 IMPRESSION: Dense consolidation in the right lower lobe superior segment. Underlying lung mass or endobronchial lesion could not be excluded. Right pleural effusion. Recommend CT chest with IV contrast if possible Chest CT 05/06/16 11:03 IMPRESSION: Extensive airspace disease in the right lung. Subpulmonic pleural effusion. Assessment & Plan - Diagnosis (1) Postobstructive pneumonia Is this a current diagnosis for this admission?: YesPlan: Is likely secondary to mass. Will continue current medications but add flutter valve. Will expand antibiotic coverage. The patient is to have bronchoscopy in the a.m. (2) Sepsis Qualifiers: Sepsis type: sepsis due to unspecified organism Qualified Code(s): A41.9 - Sepsis, unspecified organism Is this a current diagnosis for this admission?: YesPlan: Overall appears improved. Selected Entries 05/04/16 05/04/16 08:12 09:00 Pulse Rate 120 H Respiratory 27 H Rate 05/04/16 08:47 WBC 19.3 H (3) Dyslipidemia Is this a current diagnosis for this admission?: Yes (4) Essential (primary) hypertension Is this a current diagnosis for this admission?: Yes - Time Time Spent with patient: 35 or more minutes Medications reviewed and adjusted accordingly: Yes Disposition: The patient is a DO NOT RESUSCITATE DO NOT INTUBATE. Pending patient's symptomatology and diagnostic findings will reevaluate as needed.
[2016-05-09] MEDS: PIPERACILLIN SODIUM/TAZOBACTAM 4.5 GM in NORMAL SALINE 100 ML IV SCH ×2 (15:51→21:31)
[2016-05-09] MEDS: SIMVASTATIN 40 MG TABLET PO SCH (17:11)
[2016-05-09] MEDS: MORPHINE SULFATE 10 MG/ML INJ IV PRN (21:31)
[2016-05-09] MEDS: DIPHENHYDRAMINE HCL 25 MG CAPSULE PO PRN (21:33)
[2016-05-09] MEDS: TRAZODONE HCL 50 MG TABLET PO SCH (21:35)
[2016-05-10] MEDS: IPRATROPIUM/ALBUTEROL 0.5-2.5 MG/3 ML AMPUL NEB SCH ×4 (01:15→23:47)
[2016-05-10] MEDS: BENZONATATE 100 MG CAPSULE PO PRN (02:23)
[2016-05-10] MEDS: PIPERACILLIN SODIUM/TAZOBACTAM 4.5 GM in NORMAL SALINE 100 ML IV SCH ×4 (03:29→21:50)
[2016-05-10] MEDS: HEPARIN SOD (PORCINE) 5,000 UNIT/ML 1 ML SYRINGE SUBCUT SCH ×3 (05:32→21:51)
[2016-05-10] MEDS: LANSOPRAZOLE 15 MG TAB.RAP.DR PO SCH ×2 (05:32→16:54)
[2016-05-10] MEDS: GUAIFENESIN 600 MG TABLET.SA PO SCH ×2 (10:43→21:50)
[2016-05-10] MEDS: DOCUSATE SODIUM 100 MG CAPSULE PO SCH ×2 (10:43→16:53)
[2016-05-10] MEDS: LISINOPRIL 10 MG TABLET PO SCH ×2 (10:43→21:49)
[2016-05-10] MEDS: NIFEDIPINE 30 MG TAB.ER.24 PO SCH ×2 (10:43→21:50)
[2016-05-10] MEDS ORDERED: PROPOFOL INJ 200 MG/20 ML VIAL IV ONE (12:18)
[2016-05-10] MEDS ORDERED: EPHEDRINE SULFATE INJ 50 MG/1 ML AMPULE ONE (12:18)
[2016-05-10] MEDS ORDERED: MIDAZOLAM 2 MG/2 ML INJ ONE (12:18)
[2016-05-10] MEDS ORDERED: FENTANYL CITRATE INJ/PF 100 MCG/2 ML AMPUL ONE (12:18)
--- NOTE | 2016-05-10 14:23 | PDOC PROGRESS REPORT ---
Subjective Progress Note for:: 05/10/16 Subjective:: awake alert hungery Physical Exam Vital Signs: Temp Pulse Resp BP Pulse Ox 98.0 F 121 H 21 H 132/58 H 89 L 05/10/16 03:34 05/10/16 07:00 05/10/16 03:34 05/10/16 03:34 05/10/16 03:34 Intake & Output 05/09/16 05/10/16 05/11/16 06:59 06:59 06:59 Intake Total 1090 1265 Output Total 850 600 Balance 240 665 Weight 71.8 kg 71.8 kg General appearance: PRESENT: no acute distress, disheveled, well-developed, well -nourished Head exam: PRESENT: atraumatic, normocephalic Eye exam: PRESENT: conjunctiva pale, EOMI Mouth exam: PRESENT: dry mucosa, neck supple Neck exam: ABSENT: carotid bruit, JVD, lymphadenopathy, thyromegaly Respiratory exam: PRESENT: decreased breath sounds, prolonged expiratory phas, rhonchi, unlabored Cardiovascular exam: PRESENT: RRR, +S1, +S2 Pulses: PRESENT: normal radial pulses GI/Abdominal exam: PRESENT: normal bowel sounds, soft. ABSENT: distended, guarding, mass, organolmegaly, rebound, tenderness Rectal exam: PRESENT: deferred Musculoskeletal exam: PRESENT: normal inspection Neurological exam: PRESENT: awake Skin exam: PRESENT: dry, warm Results Laboratory Results: 05/09/16 08:50 05/09/16 08:50 05/09/16 05/09/16 08:50 08:50 WBC 15.0 H RBC 4.60 Hgb 13.9 Hct 41.0 MCV 89 MCH 30.3 MCHC 33.9 RDW 13.7 Plt Count 239 Seg Neutrophils % Not Reportable Lymphocytes % Not Reportable Monocytes % Not Reportable Eosinophils % Not Reportable Basophils % Not Reportable Absolute Neutrophils Not Reportable Absolute Lymphocytes Not Reportable Absolute Monocytes Not Reportable Absolute Eosinophils Not Reportable Absolute Basophils Not Reportable Sodium 137.7 Potassium 3.8 Chloride 101 Carbon Dioxide 24 Anion Gap 13 BUN 20 Creatinine 1.07 Est GFR ( Amer) > 60 Est GFR (Non-Af Amer) > 60 Glucose 104 Calcium 9.3 05/04/16 15:55 Blood Blood Culture - Final NO GROWTH IN 5 DAYS 05/07/16 14:15 Sputum Gram Stain - Final 05/07/16 14:15 Sputum Sputum Culture - Final C.albicans/C.dubliniensis Greatly Reduced Normal Astrid Impressions: Chest X-Ray 05/06/16 00:00 IMPRESSION: Dense consolidation in the right lower lobe superior segment. Underlying lung mass or endobronchial lesion could not be excluded. Right pleural effusion. Recommend CT chest with IV contrast if possible Chest CT 05/06/16 11:03 IMPRESSION: Extensive airspace disease in the right lung. Subpulmonic pleural effusion. Assessment & Plan - Diagnosis (1) Essential (primary) hypertension Is this a current diagnosis for this admission?: YesPlan: stable (2) Sepsis Qualifiers: Sepsis type: sepsis due to unspecified organism Qualified Code(s): A41.9 - Sepsis, unspecified organism Is this a current diagnosis for this admission?: Yes (3) Postobstructive pneumonia Is this a current diagnosis for this admission?: YesPlan: 40 min prior to proceedure pleural effusion felt by or to require thoracentesis FOB cancelled will be rescheduled at a latter date
[2016-05-10 16:32] LABS: FLUID APPEARANCE HAZY; FLUID RBC SIDE 1 328; FLUID RBC SIDE 2 318; FLUID TYPE PLEURAL
[2016-05-10 16:33] LABS: FLUID RBC DILUENT USED NONE USED; FLUID RBC DILUTION FACTOR 1; TOTAL RBC SQUARES COUNTED FLD 25
[2016-05-10] MEDS: SIMVASTATIN 40 MG TABLET PO SCH (16:53)
--- NOTE | 2016-05-10 17:08 | PDOC PROGRESS REPORT ---
Subjective Progress Note for:: 05/10/16 Subjective:: The patient was seen earlier today on rounds. The patient states that he does feel better than yesterday. The patient has returned from thoracentesis and overall breathing is much improved. According to the daughter the patient was unable to complete sentences prior to the procedure where is now the patient is only on nasal cannula. Dyspnea has improved however the patient still has a strong cough. The patient denies any nausea, vomiting, diarrhea, dizziness, chest pain, heart palpitations, fevers, or chills although I am uncertain of how reliable this history is given that the patient easily answers yes to all questions. The patient has remained afebrile. Blood pressures have been in a good range. When prompted the patient voices no other concerns at this time. Review of systems: The rest of the review of systems is negative. Physical Exam Vital Signs: Temp Pulse Resp BP Pulse Ox 98 F 113 H 18 151/67 H 90 L 05/10/16 12:00 05/10/16 15:50 05/10/16 15:50 05/10/16 12:00 05/10/16 15:50 Intake & Output 05/08/16 05/09/16 05/10/16 23:59 23:59 23:59 Intake Total 600 1665 300 Output Total 575 700 400 Balance 25 965 -100 Weight 71.1 kg 71.8 kg 71.8 kg General appearance: PRESENT: cooperative, disheveled, thin Exam: Frail, chronically ill-appearing Head exam: PRESENT: atraumatic, normocephalic Eye exam: PRESENT: conjunctiva pale, PERRLA. ABSENT: scleral icterus Ear exam: PRESENT: normal external ear exam Mouth exam: PRESENT: moist, tongue midline Neck exam: ABSENT: JVD, thyromegaly, tracheal deviation, tracheostomy Respiratory exam: PRESENT: rhonchi, symmetrical, unlabored. ABSENT: tachypnea Cardiovascular exam: PRESENT: RRR. ABSENT: bradycardia, irregular rhythm, tachycardia Pulses: PRESENT: +1 pedal pulses bilateral Vascular exam: PRESENT: pallor GI/Abdominal exam: PRESENT: normal bowel sounds, soft. ABSENT: ascites, distended, firm, guarding, rebound, tenderness Rectal exam: PRESENT: deferred Extremities exam: ABSENT: clubbing, joint swelling, pedal edema, tenderness Musculoskeletal exam: PRESENT: ambulatory Neurological exam: PRESENT: alert, altered, oriented to person, oriented to place Psychiatric exam: PRESENT: appropriate affect - a little delayed, normal mood Skin exam: PRESENT: intact, pallor. ABSENT: jaundice, mottled Results Laboratory Results: 05/09/16 08:50 05/09/16 08:50 05/10/16 05/10/16 14:52 14:52 Fluid Type Cancelled PLEURAL Fluid Source Cancelled LUNG Fluid Color Cancelled YELLOW Fluid Appearance Cancelled HAZY Fluid Viscosity Cancelled SLIGHTLY VISCOUS Fluid WBC Cancelled 493 Fluid RBC Cancelled 3230 05/04/16 15:55 Blood Blood Culture - Final NO GROWTH IN 5 DAYS Impressions: Chest CT 05/06/16 11:03 IMPRESSION: Extensive airspace disease in the right lung. Subpulmonic pleural effusion. Chest X-Ray 05/10/16 00:00 IMPRESSION: No pneumothorax. Thoracentesis Ultrasound 05/10/16 13:44 IMPRESSION: SUCCESSFUL THORACENTESIS USING ULTRASOUND GUIDANCE. Assessment & Plan - Diagnosis (1) Postobstructive pneumonia Is this a current diagnosis for this admission?: YesPlan: Discussed the case with pulmonology. Bronchoscopy will be deferred for now. The patient will undergo thoracentesis which was successful today of 1.1 liter. Patient's symptoms are much improved. Will continue antibiotic coverage as well as flutter valve (2) Sepsis Qualifiers: Sepsis type: sepsis due to unspecified organism Qualified Code(s): A41.9 - Sepsis, unspecified organism Is this a current diagnosis for this admission?: YesPlan: Overall appears improved. Selected Entries 05/04/16 05/04/16 08:12 09:00 Pulse Rate 120 H Respiratory 27 H Rate 05/04/16 08:47 WBC 19.3 H (3) Dyslipidemia Is this a current diagnosis for this admission?: Yes (4) Essential (primary) hypertension Is this a current diagnosis for this admission?: Yes - Time Time Spent with patient: 35 or more minutes Medications reviewed and adjusted accordingly: Yes Disposition: The patient is a DO NOT RESUSCITATE DO NOT INTUBATE. Pending patient's symptomatology and diagnostic findings will reevaluate as needed.
[2016-05-10 17:33] LABS: TOTAL PROTEIN 5.2 g/dL (6.3-8.2)
[2016-05-10] MEDS: TRAZODONE HCL 50 MG TABLET PO SCH (21:54)
[2016-05-11] MEDS: HEPARIN SOD (PORCINE) 5,000 UNIT/ML 1 ML SYRINGE SUBCUT SCH ×3 (05:51→21:26)
[2016-05-11] MEDS: LANSOPRAZOLE 15 MG TAB.RAP.DR PO SCH ×2 (05:51→18:54)
[2016-05-11] MEDS: PIPERACILLIN SODIUM/TAZOBACTAM 4.5 GM in NORMAL SALINE 100 ML IV SCH ×4 (05:52→21:26)
[2016-05-11] MEDS: IPRATROPIUM/ALBUTEROL 0.5-2.5 MG/3 ML AMPUL NEB SCH ×2 (08:10→16:40)
[2016-05-11] MEDS: NIFEDIPINE 30 MG TAB.ER.24 PO SCH ×2 (10:49→21:26)
[2016-05-11] MEDS: GUAIFENESIN 600 MG TABLET.SA PO SCH ×2 (10:49→21:26)
[2016-05-11] MEDS: LISINOPRIL 10 MG TABLET PO SCH ×2 (10:49→21:26)
[2016-05-11] MEDS: DOCUSATE SODIUM 100 MG CAPSULE PO SCH ×2 (10:49→18:54)
[2016-05-11] MEDS: ACETAMINOPHEN 325 MG TABLET PO PRN ×2 (10:49→21:26)
--- NOTE | 2016-05-11 14:20 | PDOC PROGRESS REPORT ---
Subjective Progress Note for:: 05/11/16 Subjective:: The patient was seen earlier today on rounds. The patient states that he does feel better than yesterday. The patient has returned from thoracentesis yesterday and overall breathing is much improved. Dyspnea has improved however the patient still has a strong cough. The patient denies any nausea, vomiting, diarrhea, dizziness, chest pain, heart palpitations, fevers, or chills although I am uncertain of how reliable this history is given that the patient easily answers yes to all questions. The patient has remained afebrile. Blood pressures have been in a good range. When prompted the patient voices no other concerns at this time. Review of systems: The rest of the review of systems is negative. Physical Exam Vital Signs: Temp Pulse Resp BP Pulse Ox 97.8 F 100 22 H 116/49 L 90 L 05/11/16 12:55 05/11/16 12:55 05/11/16 12:55 05/11/16 12:55 05/11/16 12:55 Intake & Output 05/09/16 05/10/16 05/11/16 23:59 23:59 23:59 Intake Total 1665 400 Output Total 700 1320 Balance 965 -920 Weight 71.8 kg 71.8 kg 69.6 kg General appearance: PRESENT: cooperative, disheveled, thin Exam: Frail, chronically ill-appearing Head exam: PRESENT: atraumatic, normocephalic Eye exam: PRESENT: conjunctiva pale, PERRLA. ABSENT: scleral icterus Ear exam: PRESENT: normal external ear exam Mouth exam: PRESENT: moist, tongue midline Neck exam: ABSENT: JVD, thyromegaly, tracheal deviation, tracheostomy Respiratory exam: PRESENT: rhonchi, symmetrical, unlabored. ABSENT: tachypnea Cardiovascular exam: PRESENT: RRR. ABSENT: bradycardia, irregular rhythm, tachycardia Pulses: PRESENT: +1 pedal pulses bilateral Vascular exam: PRESENT: pallor GI/Abdominal exam: PRESENT: normal bowel sounds, soft. ABSENT: ascites, distended, firm, guarding, rebound, tenderness Rectal exam: PRESENT: deferred Extremities exam: ABSENT: clubbing, joint swelling, pedal edema, tenderness Musculoskeletal exam: PRESENT: ambulatory Neurological exam: PRESENT: alert, altered, oriented to person, oriented to place Psychiatric exam: PRESENT: appropriate affect - a little delayed, normal mood Skin exam: PRESENT: intact, pallor. ABSENT: jaundice, mottled Results Laboratory Results: 05/09/16 08:50 05/10/16 16:55 05/10/16 05/10/16 05/10/16 14:52 14:52 16:55 Glucose 137 H Total Protein 5.2 L Fluid Type Cancelled PLEURAL Fluid Source Cancelled LUNG Fluid Color Cancelled YELLOW Fluid Appearance Cancelled HAZY Fluid Viscosity Cancelled SLIGHTLY VISCOUS Fluid WBC Cancelled 493 Fluid RBC Cancelled 3230 Impressions: Chest CT 05/06/16 11:03 IMPRESSION: Extensive airspace disease in the right lung. Subpulmonic pleural effusion. Thoracentesis Ultrasound 05/10/16 13:44 IMPRESSION: SUCCESSFUL THORACENTESIS USING ULTRASOUND GUIDANCE. Chest X-Ray 05/11/16 00:00 IMPRESSION: No interval change in chest persistent right-sided airspace disease and small pleural effusions. No pneumothorax. Assessment & Plan - Diagnosis (1) Postobstructive pneumonia Is this a current diagnosis for this admission?: YesPlan: Bronchoscopy will be deferred for now. The patient will undergo thoracentesis which was successful today of 1.1 liter. Patient's symptoms are much improved. Will continue antibiotic coverage as well as flutter valve. Further management per pulmonology. (2) Sepsis Qualifiers: Sepsis type: sepsis due to unspecified organism Qualified Code(s): A41.9 - Sepsis, unspecified organism Is this a current diagnosis for this admission?: YesPlan: Overall appears improved. Selected Entries 05/04/16 05/04/16 08:12 09:00 Pulse Rate 120 H Respiratory 27 H Rate 05/04/16 08:47 WBC 19.3 H (3) Dyslipidemia Is this a current diagnosis for this admission?: Yes (4) Essential (primary) hypertension Is this a current diagnosis for this admission?: Yes - Time Time Spent with patient: 25-34 minutes Medications reviewed and adjusted accordingly: Yes
[2016-05-11] MEDS: SIMVASTATIN 40 MG TABLET PO SCH (18:55)
[2016-05-11] MEDS: TRAZODONE HCL 50 MG TABLET PO SCH (21:26)
[2016-05-12] MEDS: IPRATROPIUM/ALBUTEROL 0.5-2.5 MG/3 ML AMPUL NEB SCH ×4 (00:34→23:29)
[2016-05-12] MEDS: DIPHENHYDRAMINE HCL 25 MG CAPSULE PO PRN (01:18)
[2016-05-12] MEDS: PIPERACILLIN SODIUM/TAZOBACTAM 4.5 GM in NORMAL SALINE 100 ML IV SCH ×4 (03:18→22:15)
[2016-05-12] MEDS: MORPHINE SULFATE 10 MG/ML INJ IV PRN ×2 (04:32→22:15)
[2016-05-12] MEDS: LANSOPRAZOLE 15 MG TAB.RAP.DR PO SCH ×2 (06:02→16:29)
[2016-05-12] MEDS: HEPARIN SOD (PORCINE) 5,000 UNIT/ML 1 ML SYRINGE SUBCUT SCH ×3 (06:02→22:13)
[2016-05-12] MEDS: GUAIFENESIN 600 MG TABLET.SA PO SCH ×2 (11:12→22:15)
[2016-05-12] MEDS: NIFEDIPINE 30 MG TAB.ER.24 PO SCH ×2 (11:13→22:15)
[2016-05-12] MEDS: LISINOPRIL 10 MG TABLET PO SCH ×2 (11:13→22:14)
[2016-05-12] MEDS: DOCUSATE SODIUM 100 MG CAPSULE PO SCH ×2 (11:13→17:08)
--- NOTE | 2016-05-12 15:49 | PDOC PROGRESS REPORT ---
Subjective Progress Note for:: 05/12/16 Subjective:: The patient was seen earlier today on rounds. The patient states that he does feel better than yesterday. Overall breathing is much improved. Dyspnea has improved however the patient still has a strong cough. The patient denies any nausea, vomiting, diarrhea, dizziness, chest pain, heart palpitations, fevers, or chills although I am uncertain of how reliable this history is given that the patient easily answers yes to all questions. The patient has remained afebrile. Blood pressures have been in a good range. When prompted the patient voices no other concerns at this time. Review of systems: The rest of the review of systems is negative. Addendum: I was notified by pathology of the patient's findings on cytology were consistent with adenocarcinoma Physical Exam Vital Signs: Temp Pulse Resp BP Pulse Ox 98.1 F 117 H 20 122/55 L 92 05/12/16 12:00 05/12/16 14:00 05/12/16 12:00 05/12/16 12:00 05/12/16 12:00 Intake & Output 05/10/16 05/11/16 05/12/16 23:59 23:59 23:59 Intake Total 400 550 580 Output Total 1320 500 750 Balance -920 50 -170 Weight 71.8 kg 69.6 kg 71.5 kg General appearance: PRESENT: cooperative, disheveled, thin Exam: Frail, chronically ill-appearing Head exam: PRESENT: atraumatic, normocephalic Eye exam: PRESENT: conjunctiva pale, PERRLA. ABSENT: scleral icterus Ear exam: PRESENT: normal external ear exam Mouth exam: PRESENT: moist, tongue midline Neck exam: ABSENT: JVD, thyromegaly, tracheal deviation, tracheostomy Respiratory exam: PRESENT: rhonchi, symmetrical, unlabored. ABSENT: tachypnea Cardiovascular exam: PRESENT: RRR. ABSENT: bradycardia, irregular rhythm, tachycardia Pulses: PRESENT: +1 pedal pulses bilateral Vascular exam: PRESENT: pallor GI/Abdominal exam: PRESENT: normal bowel sounds, soft. ABSENT: ascites, distended, firm, guarding, rebound, tenderness Rectal exam: PRESENT: deferred Extremities exam: ABSENT: clubbing, joint swelling, pedal edema, tenderness Musculoskeletal exam: PRESENT: ambulatory Neurological exam: PRESENT: alert, altered, oriented to person, oriented to place Psychiatric exam: PRESENT: appropriate affect - a little delayed, normal mood Skin exam: PRESENT: intact, pallor. ABSENT: jaundice, mottled Results Laboratory Results: 05/09/16 08:50 05/10/16 16:55 05/10/16 14:52 Fluid Glucose 101 Fluid Total Protein 3.2 Fluid LDH 409 Fluid Amylase 20 Impressions: Chest CT 05/06/16 11:03 IMPRESSION: Extensive airspace disease in the right lung. Subpulmonic pleural effusion. Thoracentesis Ultrasound 05/10/16 13:44 IMPRESSION: SUCCESSFUL THORACENTESIS USING ULTRASOUND GUIDANCE. Chest X-Ray 05/11/16 00:00 IMPRESSION: No interval change in chest persistent right-sided airspace disease and small pleural effusions. No pneumothorax. Assessment & Plan - Diagnosis (1) Postobstructive pneumonia Is this a current diagnosis for this admission?: YesPlan: Bronchoscopy will be deferred for now. Discussed the case with Dr. Menjivar. May repeat thoracentesis for patient comfort. Patient's symptoms are much improved. Will continue antibiotic coverage as well as flutter valve. Further management per pulmonology. (2) Adenocarcinoma Is this a current diagnosis for this admission?: YesPlan: Uncertain of primary. Will consult oncology. Have notified pulmonology. (3) Sepsis Qualifiers: Sepsis type: sepsis due to unspecified organism Qualified Code(s): A41.9 - Sepsis, unspecified organism Is this a current diagnosis for this admission?: YesPlan: Overall appears improved. Selected Entries 05/04/16 05/04/16 08:12 09:00 Pulse Rate 120 H Respiratory 27 H Rate 05/04/16 08:47 WBC 19.3 H (4) Dyslipidemia Is this a current diagnosis for this admission?: Yes (5) Essential (primary) hypertension Is this a current diagnosis for this admission?: Yes - Time Time Spent with patient: 35 or more minutes Medications reviewed and adjusted accordingly: Yes Anticipated discharge: Home Disposition: The patient is a DO NOT RESUSCITATE DO NOT INTUBATE. Pending patient's symptomatology and diagnostic findings will reevaluate as needed.
[2016-05-12] MEDS: SIMVASTATIN 40 MG TABLET PO SCH (17:09)
[2016-05-12] MEDS ORDERED: NORMAL SALINE 500 ML IV PRN (17:14)
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
--- NOTE | 2016-05-12 19:28 | XCELERA REPORT ---
[address] [address] Transthoracic Echocardiogram Report Name: MAGDALENO PATEL Age: 86 yrs Gender: Male : 1930 Patient Status: Inpatient Patient Location: [id number]\S\431\[id number]\A Study Date: 05/12/2016 02:26 PM Height: 68 in Weight: 157 lb BSA: 1.8 m2 Procedure: A complete two-dimensional transthoracic echocardiogram was performed (2D, M-mode, spectral and color flow Doppler). The study was technically difficult with many images being suboptimal in quality. Reason For Study: Massive pleural effusion Ordering Physician: SONNY PA Performed By: Jassi Gaines Interpretation Summary The study was technically difficult with many images being suboptimal in quality. The left ventricular ejection fraction is normal. The left ventricle is grossly normal size. There is borderline concentric left ventricular hypertrophy. LV diastolic function could not be adequately assessed. Not all wall segments were well visualized. Regional wall motion abnormalities cannot be excluded due to limited visualization. The right ventricle is mildly dilated. Right ventricular function cannot be assessed due to poor image quality. The right atrium is normal. The left atrial size is normal. There is a trace amount of mitral regurgitation There is no mitral valve stenosis. There is a trace amount of aortic regurgitation There is no aortic valve stenosis There is a trace to mild amount of tricuspid regurgitation There is no tricuspid stenosis. The aortic root is not well visualized. The inferior vena cava appeared normal and decreased > 50% with respiration (RAP 5-10 mmHg) There is no pericardial effusion. MMode/2D Measurements \T\ Calculations RVDd: 2.5 cm LVIDd: 4.1 cm FS: 30.9 % Ao root diam: 3.2 cm IVSd: 0.83 cm LVIDs: 2.8 cm EDV(Teich): 73.1 ml LVPWd: 0.86 cm ESV(Teich): 30.0 ml Ao root area: 7.9 cm2 EF(Teich): 59.0 % LA dimension: 2.5 cm Doppler Measurements \T\ Calculations MV E max arjun: MV P1/2t max arjun: Ao V2 max: LV V1 max P.7 cm/sec 75.1 cm/sec 119.5 cm/sec 2.4 mmHg MV A max arjun: MV P1/2t: 37.7 msec Ao max PG: LV V1 max: 116.3 cm/sec 5.7 mmHg 77.3 cm/sec MV E/A: 0.65 MVA(P1/2t): 5.8 cm2 MV dec slope: 584.0 cm/sec2 PA V2 max: PI end-d arjun: TR max arjun: RAP systole: 91.6 cm/sec 101.0 cm/sec 271.7 cm/sec 10.0 mmHg PA max P.4 mmHg TR max P.6 mmHg RVSP(TR): 39.6 mmHg Left Ventricle The left ventricle is grossly normal size. There is borderline concentric left ventricular hypertrophy. The left ventricular ejection fraction is normal. LV diastolic function could not be adequately assessed. Not all wall segments were well visualized. Regional wall motion abnormalities cannot be excluded due to limited visualization. Right Ventricle The right ventricle is mildly dilated. There is normal right ventricular wall thickness. Right ventricular function cannot be assessed due to poor image quality. Atria The right atrium is normal. The left atrial size is normal. Interarterial septum not well visualized and not well dopplered. Cannot comment on ASD/PFO presence. Mitral Valve The mitral valve leaflets are sclerotic, but show no functional abnormalities. There is no mitral valve stenosis. There is a trace amount of mitral regurgitation. Aortic Valve The aortic valve is not well visualized secondary to technical limitations. There is no aortic valve stenosis. There is a trace amount of aortic regurgitation. Tricuspid Valve The tricuspid valve is not well visualized secondary to technical limitations. There is no tricuspid stenosis. There is a trace to mild amount of tricuspid regurgitation. Pulmonic Valve The pulmonic valve is not well visualized. Great Vessels The aortic root is not well visualized. The inferior vena cava appeared normal and decreased > 50% with respiration (RAP 5-10 mmHg). Effusions There is no pericardial effusion. : SONNY PA > Carina Workman
--- NOTE | 2016-05-12 21:02 | PDOC PROGRESS REPORT ---
Subjective Progress Note for:: 05/12/16 Subjective:: awake alert w/o complaints Physical Exam Vital Signs: Temp Pulse Resp BP Pulse Ox 97.6 F 113 H 20 131/72 H 90 L 05/12/16 08:00 05/12/16 08:04 05/12/16 08:04 05/12/16 08:00 05/12/16 08:04 Intake & Output 05/11/16 05/12/16 05/13/16 06:59 06:59 06:59 Intake Total 100 650 Output Total 920 1050 Balance -820 -400 Weight 69.6 kg 71.5 kg General appearance: PRESENT: no acute distress, cooperative, disheveled Head exam: PRESENT: atraumatic, normocephalic Eye exam: PRESENT: conjunctiva pale, EOMI Mouth exam: PRESENT: moist, neck supple Neck exam: ABSENT: carotid bruit, JVD, lymphadenopathy, thyromegaly Respiratory exam: PRESENT: decreased breath sounds, prolonged expiratory phas, unlabored Cardiovascular exam: PRESENT: RRR, +S1, +S2 Pulses: PRESENT: normal radial pulses GI/Abdominal exam: PRESENT: normal bowel sounds, soft. ABSENT: distended, guarding, mass, organolmegaly, rebound, tenderness Rectal exam: PRESENT: deferred Musculoskeletal exam: PRESENT: normal inspection Neurological exam: PRESENT: awake Psychiatric exam: PRESENT: normal mood Skin exam: PRESENT: dry, intact Results Laboratory Results: 05/09/16 08:50 05/10/16 16:55 Impressions: Chest CT 05/06/16 11:03 IMPRESSION: Extensive airspace disease in the right lung. Subpulmonic pleural effusion. Thoracentesis Ultrasound 05/10/16 13:44 IMPRESSION: SUCCESSFUL THORACENTESIS USING ULTRASOUND GUIDANCE. Chest X-Ray 05/11/16 00:00 IMPRESSION: No interval change in chest persistent right-sided airspace disease and small pleural effusions. No pneumothorax. Assessment & Plan - Diagnosis (1) Essential (primary) hypertension Is this a current diagnosis for this admission?: YesPlan: stable (2) Sepsis Qualifiers: Sepsis type: sepsis due to unspecified organism Qualified Code(s): A41.9 - Sepsis, unspecified organism Is this a current diagnosis for this admission?: No (3) Postobstructive pneumonia Is this a current diagnosis for this admission?: YesPlan: resp status improved post thoracentesis discussed plan with PCP and daughter addendum fkuid adenocarcinoma - Plan Summary Plan Summary: spoke with Dr Milligan she will check echocardiogram we are awaiting pleural fluid chem;also trying to insure optimal post dc disposition;spoke with daughter reiterated potential plans 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
[2016-05-12] MEDS: TRAZODONE HCL 50 MG TABLET PO SCH (22:15)
[2016-05-13] MEDS: PIPERACILLIN SODIUM/TAZOBACTAM 4.5 GM in NORMAL SALINE 100 ML IV SCH ×4 (02:53→20:38)
[2016-05-13] MEDS: HEPARIN SOD (PORCINE) 5,000 UNIT/ML 1 ML SYRINGE SUBCUT SCH (06:50)
[2016-05-13] MEDS: LANSOPRAZOLE 15 MG TAB.RAP.DR PO SCH ×2 (06:50→17:52)
[2016-05-13] MEDS: IPRATROPIUM/ALBUTEROL 0.5-2.5 MG/3 ML AMPUL NEB SCH ×3 (08:51→23:57)
[2016-05-13] MEDS: DOCUSATE SODIUM 100 MG CAPSULE PO SCH ×2 (09:13→17:53)
[2016-05-13] MEDS: LISINOPRIL 10 MG TABLET PO SCH ×2 (09:14→23:21)
[2016-05-13] MEDS: GUAIFENESIN 600 MG TABLET.SA PO SCH ×2 (09:14→23:20)
[2016-05-13] MEDS: NIFEDIPINE 30 MG TAB.ER.24 PO SCH ×2 (09:14→23:21)
[2016-05-13] MEDS ORDERED: HEPARIN SOD (PORCINE) 5,000 UNIT/ML 1 ML SYRINGE SUBCUT SCH (10:00)
[2016-05-13 10:54] LABS: PROTHROMBIN TIME 14.6 SEC (11.4-15.4)
[2016-05-13 10:55] LABS: PARTIAL THROMBOPLASTIN TIME 33.2 SEC (23.5-35.8)
--- NOTE | 2016-05-13 11:05 | PDOC PROGRESS REPORT ---
Subjective Progress Note for:: 05/13/16 Subjective:: The patient was seen earlier today on rounds. and daughter present at the bedside I given the patient's care. The patient states that he does feel better than yesterday although his breathing has worsened and he is now requiring a nonrebreather. The patient still has a strong bloody cough. The patient denies any nausea, vomiting, diarrhea, dizziness, chest pain, heart palpitations, fevers, or chills although I am uncertain of how reliable this history is given that the patient easily answers yes to all questions. The patient has remained afebrile. Blood pressures have been in a good range. When prompted the patient voices no other concerns at this time. The patient has not shared his working diagnosis with his who is present at the bedside. Review of systems: The rest of the review of systems is negative. Brief history: The patient is an extremely pleasant 86-year-old male with a remote history of tobacco use. The patient was admitted on 05/04/2016 with pneumonia and was treated with broad-spectrum antibiotic coverage. The patient was found to have significant pleural effusions and underwent a thoracentesis on 05/10/2016 which was consistent with adenocarcinoma. Dr. Louis with oncology has been consult did to see and evaluate the patient. The patient has also been seen by Dr. Menjivar. Bronchoscopy has been deferred for now given the patient's pathology. Uncertain of the primary at this point in time. Bone scan has been ordered for Sunday. Will attempt get another thoracentesis today given the patient's rapid reoccurrence and decompensating respiratory status. Physical Exam Vital Signs: Temp Pulse Resp BP Pulse Ox 97.2 F 110 H 20 127/56 H 85 L 05/13/16 07:36 05/13/16 07:36 05/13/16 07:36 05/13/16 07:36 05/13/16 07:36 Intake & Output 05/11/16 05/12/16 05/13/16 23:59 23:59 23:59 Intake Total 550 1270 200 Output Total 500 950 Balance 50 320 200 Weight 69.6 kg 71.5 kg 67.6 kg General appearance: PRESENT: cooperative, disheveled, thin Exam: Frail, chronically ill-appearing Head exam: PRESENT: atraumatic, normocephalic Eye exam: PRESENT: conjunctiva pale, PERRLA. ABSENT: scleral icterus Ear exam: PRESENT: normal external ear exam Mouth exam: PRESENT: moist, tongue midline Neck exam: ABSENT: JVD, thyromegaly, tracheal deviation, tracheostomy Respiratory exam: PRESENT: rhonchi, symmetrical, labored. tachypnea. Nonrebreather in place. Cardiovascular exam: PRESENT: RRR. ABSENT: bradycardia, irregular rhythm, tachycardia Pulses: PRESENT: +1 pedal pulses bilateral Vascular exam: PRESENT: pallor GI/Abdominal exam: PRESENT: normal bowel sounds, soft. ABSENT: ascites, distended, firm, guarding, rebound, tenderness Rectal exam: PRESENT: deferred Extremities exam: ABSENT: clubbing, joint swelling, pedal edema, tenderness Musculoskeletal exam: PRESENT: ambulatory Neurological exam: PRESENT: alert, altered, oriented to person, oriented to place Psychiatric exam: PRESENT: appropriate affect - a little delayed, normal mood Skin exam: PRESENT: intact, pallor. ABSENT: jaundice, mottled Results Laboratory Results: 05/09/16 08:50 05/10/16 16:55 05/10/16 14:52 Fluid Glucose 101 Fluid Total Protein 3.2 Fluid LDH 409 Fluid Amylase 20 Impressions: Thoracentesis Ultrasound 05/10/16 13:44 IMPRESSION: SUCCESSFUL THORACENTESIS USING ULTRASOUND GUIDANCE. Chest X-Ray 05/11/16 00:00 IMPRESSION: No interval change in chest persistent right-sided airspace disease and small pleural effusions. No pneumothorax. Abdomen/Pelvis CT 05/12/16 00:00 IMPRESSION: 1. STABLE DEGREE OF EXTENSIVE AIRSPACE DISEASE INVOLVING THE RIGHT LUNG WITH SUBTLE 4.5 CM AREA OF HYPERATTENUATION ALONG THE SUPERIOR MEDIAL MARGIN COULD REPRESENT AN UNDERLYING LUNG MASS. CORRELATE WITH THORACENTESIS RESULTS. 2. STABLE MODERATE TO LARGE RIGHT-SIDED PLEURAL EFFUSION WITH ENLARGING SMALL LEFT PLEURAL EFFUSION AND ASSOCIATED COMPRESSIVE ATELECTASIS. 3. DEVELOPING GROUND-GLASS AIRSPACE DISEASE INVOLVING THE LEFT UPPER LOBE/ LINGULA AND LEFT LOWER LOBE MAY REPRESENT ASYMMETRIC PULMONARY EDEMA OR SUPERIMPOSED PNEUMONITIS. 4. INDETERMINATE BILATERAL RENAL LESIONS ABOVE. RECOMMEND FURTHER EVALUATION WITH DEDICATED RENAL MRI PRESUMING THERE NO CONTRAINDICATIONS. 5. MODERATELY DISTENDED BLADDER WITH HYPERATTENUATING MATERIAL COULD REPRESENT SLUDGE OR VICARIOUS EXCRETION OF CONTRAST. CORRELATE WITH LABORATORY VALUES. Chest CT 05/12/16 00:00 IMPRESSION: 1. STABLE DEGREE OF EXTENSIVE AIRSPACE DISEASE INVOLVING THE RIGHT LUNG WITH SUBTLE 4.5 CM AREA OF HYPERATTENUATION ALONG THE SUPERIOR MEDIAL MARGIN COULD REPRESENT AN UNDERLYING LUNG MASS. CORRELATE WITH THORACENTESIS RESULTS. 2. STABLE MODERATE TO LARGE RIGHT-SIDED PLEURAL EFFUSION WITH ENLARGING SMALL LEFT PLEURAL EFFUSION AND ASSOCIATED COMPRESSIVE ATELECTASIS. 3. DEVELOPING GROUND-GLASS AIRSPACE DISEASE INVOLVING THE LEFT UPPER LOBE/ LINGULA AND LEFT LOWER LOBE MAY REPRESENT ASYMMETRIC PULMONARY EDEMA OR SUPERIMPOSED PNEUMONITIS. 4. INDETERMINATE BILATERAL RENAL LESIONS ABOVE. RECOMMEND FURTHER EVALUATION WITH DEDICATED RENAL MRI PRESUMING THERE NO CONTRAINDICATIONS. 5. MODERATELY DISTENDED BLADDER WITH HYPERATTENUATING MATERIAL COULD REPRESENT SLUDGE OR VICARIOUS EXCRETION OF CONTRAST. CORRELATE WITH LABORATORY VALUES. Assessment & Plan - Diagnosis (1) Adenocarcinoma Is this a current diagnosis for this admission?: YesPlan: Uncertain of primary. Have notified pulmonology. Do appreciate Dr. Louis with oncology's input with this. (2) Postobstructive pneumonia Is this a current diagnosis for this admission?: YesPlan: Bronchoscopy will be deferred for now. Discussed the case with Dr. Menjivar. Will attempt to repeat thoracentesis for patient comfort. Patient's symptoms are much improved. Will continue antibiotic coverage as well as flutter valve. 05/04/16 16:00 Ipratropium/Albuterol Sulfate [Duoneb 3 ml Ampul] 3 ml NEB RTQ8 05/09/16 15:00 Piperacillin Sodium/Tazobactam [Zosyn Inj 4.5 gm Vial] 4.5 gm Normal Saline [ NaCl 0.9% 100 ml IV Soln] 100 ml IV Q6A 05/09/16 22:00 Guaifenesin [Mucinex Sr 600 mg Tablet.sa] 1,200 mg PO Q12 (3) Malignant pleural effusion Is this a current diagnosis for this admission?: Yes (4) Sepsis Qualifiers: Sepsis type: sepsis due to unspecified organism Qualified Code(s): A41.9 - Sepsis, unspecified organism Is this a current diagnosis for this admission?: NoPlan: Overall appears improved. Selected Entries 05/04/16 05/04/16 08:12 09:00 Pulse Rate 120 H Respiratory 27 H Rate 05/04/16 05/09/16 08:47 08:50 WBC 19.3 H 15.0 H (5) Dyslipidemia Is this a current diagnosis for this admission?: YesPlan: 05/05/16 18:00 Simvastatin [Zocor 40 mg Tablet] 40 mg PO QPM (6) Essential (primary) hypertension Is this a current diagnosis for this admission?: YesPlan: Overall stable 05/05/16 10:00 Lisinopril [Prinivil 10 mg Tablet] 20 mg PO Q12 Nifedipine [Procardia Xl 30 mg Tablet] 60 mg PO Q12 Selected Entries 05/13/16 07:36 Blood Pressure 127/56 H (7) DVT prophylaxis Is this a current diagnosis for this admission?: YesPlan: Pharmacological prophylaxis on hold given the patient's bloody sputum and thoracentesis. Will continue with SCDs. 05/13/16 09:40 SCD NOW - Time Time Spent with patient: on this visit including assessment, plan, physical examination, family meeting, and specialty collaboration, and patient education is 35 minutes Time Spent with patient: 35 or more minutes Medications reviewed and adjusted accordingly: Yes Disposition: The patient is a DO NOT RESUSCITATE DO NOT INTUBATE. Pending patient's symptomatology and diagnostic findings will reevaluate as needed.
[2016-05-13] MEDS: MORPHINE SULFATE 10 MG/ML INJ IV PRN ×2 (12:57→20:38)
--- NOTE | 2016-05-13 16:05 | PDOC PROGRESS REPORT ---
Subjective Progress Note for:: 05/13/16 Subjective:: awake a little confused spouse at bedside Physical Exam Vital Signs: Temp Pulse Resp BP Pulse Ox 97.2 F 110 H 20 127/56 H 85 L 05/13/16 07:36 05/13/16 07:36 05/13/16 07:36 05/13/16 07:36 05/13/16 07:36 Intake & Output 05/12/16 05/13/16 05/14/16 06:59 06:59 06:59 Intake Total 650 1370 Output Total 1050 400 Balance -400 970 Weight 71.5 kg 67.6 kg General appearance: PRESENT: no acute distress, cooperative, disheveled, thin Head exam: PRESENT: atraumatic, normocephalic Eye exam: PRESENT: conjunctiva pale, EOMI Mouth exam: PRESENT: neck supple Neck exam: ABSENT: carotid bruit, JVD, lymphadenopathy, thyromegaly Respiratory exam: PRESENT: crackles, decreased breath sounds, prolonged expiratory phas, rhonchi, symmetrical, unlabored Cardiovascular exam: PRESENT: irregular rhythm GI/Abdominal exam: PRESENT: normal bowel sounds, soft. ABSENT: distended, guarding, mass, organolmegaly, rebound, tenderness Rectal exam: PRESENT: deferred Gentrourinary exam: PRESENT: indwelling catheter Musculoskeletal exam: PRESENT: normal inspection Neurological exam: PRESENT: awake Skin exam: PRESENT: dry Results Laboratory Results: 05/09/16 08:50 05/10/16 16:55 05/10/16 14:52 Fluid Glucose 101 Fluid Total Protein 3.2 Fluid LDH 409 Fluid Amylase 20 Impressions: Thoracentesis Ultrasound 05/10/16 13:44 IMPRESSION: SUCCESSFUL THORACENTESIS USING ULTRASOUND GUIDANCE. Chest X-Ray 05/11/16 00:00 IMPRESSION: No interval change in chest persistent right-sided airspace disease and small pleural effusions. No pneumothorax. Abdomen/Pelvis CT 05/12/16 00:00 IMPRESSION: 1. STABLE DEGREE OF EXTENSIVE AIRSPACE DISEASE INVOLVING THE RIGHT LUNG WITH SUBTLE 4.5 CM AREA OF HYPERATTENUATION ALONG THE SUPERIOR MEDIAL MARGIN COULD REPRESENT AN UNDERLYING LUNG MASS. CORRELATE WITH THORACENTESIS RESULTS. 2. STABLE MODERATE TO LARGE RIGHT-SIDED PLEURAL EFFUSION WITH ENLARGING SMALL LEFT PLEURAL EFFUSION AND ASSOCIATED COMPRESSIVE ATELECTASIS. 3. DEVELOPING GROUND-GLASS AIRSPACE DISEASE INVOLVING THE LEFT UPPER LOBE/ LINGULA AND LEFT LOWER LOBE MAY REPRESENT ASYMMETRIC PULMONARY EDEMA OR SUPERIMPOSED PNEUMONITIS. 4. INDETERMINATE BILATERAL RENAL LESIONS ABOVE. RECOMMEND FURTHER EVALUATION WITH DEDICATED RENAL MRI PRESUMING THERE NO CONTRAINDICATIONS. 5. MODERATELY DISTENDED BLADDER WITH HYPERATTENUATING MATERIAL COULD REPRESENT SLUDGE OR VICARIOUS EXCRETION OF CONTRAST. CORRELATE WITH LABORATORY VALUES. Chest CT 05/12/16 00:00 IMPRESSION: 1. STABLE DEGREE OF EXTENSIVE AIRSPACE DISEASE INVOLVING THE RIGHT LUNG WITH SUBTLE 4.5 CM AREA OF HYPERATTENUATION ALONG THE SUPERIOR MEDIAL MARGIN COULD REPRESENT AN UNDERLYING LUNG MASS. CORRELATE WITH THORACENTESIS RESULTS. 2. STABLE MODERATE TO LARGE RIGHT-SIDED PLEURAL EFFUSION WITH ENLARGING SMALL LEFT PLEURAL EFFUSION AND ASSOCIATED COMPRESSIVE ATELECTASIS. 3. DEVELOPING GROUND-GLASS AIRSPACE DISEASE INVOLVING THE LEFT UPPER LOBE/ LINGULA AND LEFT LOWER LOBE MAY REPRESENT ASYMMETRIC PULMONARY EDEMA OR SUPERIMPOSED PNEUMONITIS. 4. INDETERMINATE BILATERAL RENAL LESIONS ABOVE. RECOMMEND FURTHER EVALUATION WITH DEDICATED RENAL MRI PRESUMING THERE NO CONTRAINDICATIONS. 5. MODERATELY DISTENDED BLADDER WITH HYPERATTENUATING MATERIAL COULD REPRESENT SLUDGE OR VICARIOUS EXCRETION OF CONTRAST. CORRELATE WITH LABORATORY VALUES. Assessment & Plan - Diagnosis (1) Essential (primary) hypertension Is this a current diagnosis for this admission?: YesPlan: stable (2) Sepsis Qualifiers: Sepsis type: sepsis due to unspecified organism Qualified Code(s): A41.9 - Sepsis, unspecified organism Is this a current diagnosis for this admission?: No (3) Postobstructive pneumonia Is this a current diagnosis for this admission?: YesPlan: resp status improved post thoracentesis pleural fluid yieled adenocarcinoma - Time Critical Time spent with patient: 25-34 minutes
--- NOTE | 2016-05-13 16:07 | PDOC PROGRESS REPORT ---
Subjective Progress Note for:: 05/11/16 Subjective:: awake a little confused spouse at bedside Physical Exam Vital Signs: Temp Pulse Resp BP Pulse Ox 97.4 F 104 H 22 H 115/51 L 93 05/11/16 08:16 05/11/16 08:16 05/11/16 08:16 05/11/16 08:16 05/11/16 08:16 Intake & Output 05/10/16 05/11/16 05/12/16 06:59 06:59 06:59 Intake Total 1265 100 Output Total 600 920 Balance 665 -820 Weight 71.8 kg 69.6 kg General appearance: PRESENT: no acute distress, cooperative, disheveled Head exam: PRESENT: atraumatic, normocephalic Eye exam: PRESENT: conjunctiva pale, EOMI Mouth exam: PRESENT: neck supple Neck exam: ABSENT: carotid bruit, JVD, lymphadenopathy, thyromegaly Respiratory exam: PRESENT: decreased breath sounds, prolonged expiratory phas, rales, rhonchi, unlabored Cardiovascular exam: PRESENT: irregular rhythm Pulses: PRESENT: normal radial pulses GI/Abdominal exam: PRESENT: normal bowel sounds, soft. ABSENT: distended, guarding, mass, organolmegaly, rebound, tenderness Rectal exam: PRESENT: deferred Gentrourinary exam: PRESENT: indwelling catheter Musculoskeletal exam: PRESENT: normal inspection Neurological exam: PRESENT: awake Results Laboratory Results: 05/09/16 08:50 05/10/16 16:55 05/10/16 05/10/16 05/10/16 14:52 14:52 16:55 Glucose 137 H Total Protein 5.2 L Fluid Type Cancelled PLEURAL Fluid Source Cancelled LUNG Fluid Color Cancelled YELLOW Fluid Appearance Cancelled HAZY Fluid Viscosity Cancelled SLIGHTLY VISCOUS Fluid WBC Cancelled 493 Fluid RBC Cancelled 3230 Impressions: Chest CT 05/06/16 11:03 IMPRESSION: Extensive airspace disease in the right lung. Subpulmonic pleural effusion. Thoracentesis Ultrasound 05/10/16 13:44 IMPRESSION: SUCCESSFUL THORACENTESIS USING ULTRASOUND GUIDANCE. Chest X-Ray 05/10/16 17:04 IMPRESSION: STABLE APPEARANCE OF THE CHEST ABOVE. NO PNEUMOTHORAX POST THORACENTESIS. Assessment & Plan - Diagnosis (1) Essential (primary) hypertension Is this a current diagnosis for this admission?: YesPlan: stable (2) Sepsis Qualifiers: Sepsis type: sepsis due to unspecified organism Qualified Code(s): A41.9 - Sepsis, unspecified organism Is this a current diagnosis for this admission?: No (3) Postobstructive pneumonia Is this a current diagnosis for this admission?: YesPlan: resp status stable
--- NOTE | 2016-05-13 16:10 | PDOC PROGRESS REPORT ---
Subjective Progress Note for:: 05/09/16 Subjective:: awake Physical Exam Vital Signs: Temp Pulse Resp BP Pulse Ox 98.0 F 121 H 21 H 132/58 H 89 L 05/10/16 03:34 05/10/16 07:00 05/10/16 03:34 05/10/16 03:34 05/10/16 03:34 Intake & Output 05/09/16 05/10/16 05/11/16 06:59 06:59 06:59 Intake Total 1090 1265 Output Total 850 600 Balance 240 665 Weight 71.8 kg 71.8 kg General appearance: PRESENT: no acute distress, cooperative, disheveled Head exam: PRESENT: atraumatic, normocephalic Eye exam: PRESENT: conjunctiva pale, EOMI Mouth exam: PRESENT: dry mucosa, neck supple Neck exam: ABSENT: carotid bruit, JVD, lymphadenopathy, thyromegaly Respiratory exam: PRESENT: decreased breath sounds, prolonged expiratory phas, rales, rhonchi, unlabored Cardiovascular exam: PRESENT: irregular rhythm Pulses: PRESENT: normal radial pulses GI/Abdominal exam: PRESENT: normal bowel sounds, soft. ABSENT: distended, guarding, mass, organolmegaly, rebound, tenderness Rectal exam: PRESENT: deferred Gentrourinary exam: PRESENT: indwelling catheter Musculoskeletal exam: PRESENT: normal inspection Neurological exam: PRESENT: awake Skin exam: PRESENT: dry, warm Results Laboratory Results: 05/09/16 08:50 05/09/16 08:50 05/09/16 05/09/16 08:50 08:50 WBC 15.0 H RBC 4.60 Hgb 13.9 Hct 41.0 MCV 89 MCH 30.3 MCHC 33.9 RDW 13.7 Plt Count 239 Seg Neutrophils % Not Reportable Lymphocytes % Not Reportable Monocytes % Not Reportable Eosinophils % Not Reportable Basophils % Not Reportable Absolute Neutrophils Not Reportable Absolute Lymphocytes Not Reportable Absolute Monocytes Not Reportable Absolute Eosinophils Not Reportable Absolute Basophils Not Reportable Sodium 137.7 Potassium 3.8 Chloride 101 Carbon Dioxide 24 Anion Gap 13 BUN 20 Creatinine 1.07 Est GFR ( Amer) > 60 Est GFR (Non-Af Amer) > 60 Glucose 104 Calcium 9.3 05/04/16 15:55 Blood Blood Culture - Final NO GROWTH IN 5 DAYS 03/19/17 14:15 Sputum Gram Stain - Final 05/07/16 14:15 Sputum Sputum Culture - Final C.albicans/C.dubliniensis Greatly Reduced Normal Astrid Impressions: Chest X-Ray 05/06/16 00:00 IMPRESSION: Dense consolidation in the right lower lobe superior segment. Underlying lung mass or endobronchial lesion could not be excluded. Right pleural effusion. Recommend CT chest with IV contrast if possible Chest CT 05/06/16 11:03 IMPRESSION: Extensive airspace disease in the right lung. Subpulmonic pleural effusion. Assessment & Plan - Diagnosis (1) Essential (primary) hypertension Is this a current diagnosis for this admission?: YesPlan: stable (2) Sepsis Qualifiers: Sepsis type: sepsis due to unspecified organism Qualified Code(s): A41.9 - Sepsis, unspecified organism Is this a current diagnosis for this admission?: Yes (3) Postobstructive pneumonia Is this a current diagnosis for this admission?: YesPlan: was scheduled for bronchoscopy
[2016-05-13] MEDS: SIMVASTATIN 40 MG TABLET PO SCH (17:52)
[2016-05-13] MEDS: LACTOBACILLUS ACIDOPHILUS 250 MG TAB PO SCH (17:53)
[2016-05-13] MEDS: TRAZODONE HCL 50 MG TABLET PO SCH (23:21)
[2016-05-14] MEDS: PIPERACILLIN SODIUM/TAZOBACTAM 4.5 GM in NORMAL SALINE 100 ML IV SCH ×4 (02:54→21:24)
[2016-05-14] MEDS: DIPHENHYDRAMINE HCL 25 MG CAPSULE PO PRN (02:54)
[2016-05-14] MEDS: BENZONATATE 100 MG CAPSULE PO PRN ×2 (02:55→15:49)
[2016-05-14] MEDS: LANSOPRAZOLE 15 MG TAB.RAP.DR PO SCH ×2 (05:54→16:55)
[2016-05-14] MEDS: MORPHINE SULFATE 10 MG/ML INJ IV PRN ×3 (05:54→22:18)
[2016-05-14 07:40] LABS: HEMATOCRIT 44.3 % (37.9-51.0); HEMOGLOBIN 14.7 g/dL (13.5-17.0); HGB HCT DIFFERENCE -0.2; MEAN CORPUSCULAR HEMOGLOBIN 30.4 pg (27.0-33.4); MEAN CORPUSCULAR HGB CONC 33.3 g/dL (32.0-36.0); MEAN CORPUSCULAR VOLUME 91 fl (80-97); RED BLOOD COUNT 4.85 10^6/uL (4.35-5.55); RED CELL DISTRIBUTION WIDTH 14.6 % (11.5-14.0); WHITE BLOOD COUNT 23.1 10^3/uL (4.0-10.5)
[2016-05-14 07:47] LABS: ALANINE AMINOTRANSFERASE 32 U/L (21-72); ALBUMIN 2.6 g/dL (3.5-5.0); ALKALINE PHOSPHATASE 127 U/L (38-126); ANION GAP 13 (5-19); ASPARTATE AMINO TRANSFERASE 33 U/L (17-59); BILIRUBIN,DIRECT 0.4 mg/dL (0.0-0.4); BILIRUBIN,TOTAL 0.7 mg/dL (0.2-1.3); BLOOD UREA NITROGEN 26 mg/dL (7-20); CARBON DIOXIDE 25 mmol/L (22-30); CHLORIDE 108 mmol/L (98-107); CREATININE RESULT 1.15 mg/dL (0.52-1.25); GLUCOSE 125 mg/dL (75-110); MAGNESIUM 2.3 mg/dL (1.6-2.3); POTASSIUM 4.4 mmol/L (3.6-5.0); SODIUM 145.6 mmol/L (137-145); TOTAL PROTEIN 5.1 g/dL (6.3-8.2)
[2016-05-14 08:21] LABS: BASOPHILS % (MANUAL) 1 % (0-2); EOSINOPHILS % (MANUAL) 1 % (0-6); LYMPHOCYTES % (MANUAL) 4 % (13-45); TOTAL CELLS COUNTED 100
[2016-05-14 08:23] LABS: BURR CELLS SLIGHT; OVALOCYTES SLIGHT; POIKILOCYTOSIS 1+; TEAR DROP CELLS SLIGHT
[2016-05-14] MEDS: IPRATROPIUM/ALBUTEROL 0.5-2.5 MG/3 ML AMPUL NEB SCH ×3 (08:37→23:59)
[2016-05-14] MEDS: LISINOPRIL 10 MG TABLET PO SCH ×2 (09:55→21:25)
[2016-05-14] MEDS: GUAIFENESIN 600 MG TABLET.SA PO SCH ×2 (09:55→21:25)
[2016-05-14] MEDS: DOCUSATE SODIUM 100 MG CAPSULE PO SCH ×2 (09:55→17:30)
[2016-05-14] MEDS: NIFEDIPINE 30 MG TAB.ER.24 PO SCH ×2 (09:56→21:24)
[2016-05-14] MEDS: LACTOBACILLUS ACIDOPHILUS 250 MG TAB PO SCH ×2 (09:56→17:30)
[2016-05-14] MEDS: SIMVASTATIN 40 MG TABLET PO SCH (17:30)
[2016-05-14] MEDS ORDERED: SIMVASTATIN 10 MG TABLET PO SCH (19:50)
--- NOTE | 2016-05-14 19:52 | PDOC PROGRESS REPORT ---
Subjective Progress Note for:: 05/14/16 Subjective:: Patient is quite anxious about his meeting with Dr. Domingo Greer tomorrow. He denies any new complaints. Patient denies chest pain, abdominal pain, nausea, vomiting, fevers, chills, diarrhea, constipation, headache, new onset weakness. Physical Exam Vital Signs: Temp Pulse Resp BP Pulse Ox 98.2 F 103 H 18 146/60 H 94 05/14/16 15:50 05/14/16 16:05 05/14/16 16:05 05/14/16 15:50 05/14/16 16:05 Intake & Output 05/13/16 05/14/16 05/15/16 06:59 06:59 06:59 Intake Total 1370 1010 780 Output Total 400 850 150 Balance 970 160 630 Weight 67.6 kg 72.3 kg Exam: General: Awake alert and oriented X1, mild respiratory distress HEENT: AT/NC, PERRL, EOMI, oropharynx is moist, pink, no scleral icterus, no conjunctival injection Neck: No JVD, trachea midline Chest: Asymmetric, tachypnea, clear left lung, absent breath sounds on the right CV: Tachycardic, Regular rate and rhythm, normal S1 and S2, no rub, or gallop Abdomen: Soft, nontender to palpation, nondistended, active bowel sounds; no rebound, rigidity, or guarding Extremities: No cyanosis; mild clubbing;trace edema Neuro: Cranial nerves II through XII are grossly intact without focal deficits; awake alert and oriented X1 Psych: Anxious Results Laboratory Results: 05/14/16 07:09 05/14/16 07:09 05/14/16 05/14/16 07:09 07:09 WBC 23.1 H RBC 4.85 Hgb 14.7 Hct 44.3 MCV 91 MCH 30.4 MCHC 33.3 RDW 14.6 H Plt Count 302 Seg Neutrophils % Not Reportable Lymphocytes % Not Reportable Monocytes % Not Reportable Eosinophils % Not Reportable Basophils % Not Reportable Absolute Neutrophils Not Reportable Absolute Lymphocytes Not Reportable Absolute Monocytes Not Reportable Absolute Eosinophils Not Reportable Absolute Basophils Not Reportable Sodium 145.6 H Potassium 4.4 Chloride 108 H Carbon Dioxide 25 Anion Gap 13 BUN 26 H Creatinine 1.15 Est GFR ( Amer) > 60 Est GFR (Non-Af Amer) > 60 Glucose 125 H Calcium 9.0 Magnesium 2.3 Total Bilirubin 0.7 AST 33 ALT 32 Alkaline Phosphatase 127 H Total Protein 5.1 L Albumin 2.6 L 05/10/16 14:52 Pleural Fluid - Right Pleural Effusion Gram Stain - Final 05/10/16 14:52 Pleural Fluid - Right Pleural Effusion Body Fluid Culture - Final NO AEROBIC OR ANAEROBIC ORGANISMS RECOVERED Impressions: Abdomen/Pelvis CT 05/12/16 00:00 IMPRESSION: 1. STABLE DEGREE OF EXTENSIVE AIRSPACE DISEASE INVOLVING THE RIGHT LUNG WITH SUBTLE 4.5 CM AREA OF HYPERATTENUATION ALONG THE SUPERIOR MEDIAL MARGIN COULD REPRESENT AN UNDERLYING LUNG MASS. CORRELATE WITH THORACENTESIS RESULTS. 2. STABLE MODERATE TO LARGE RIGHT-SIDED PLEURAL EFFUSION WITH ENLARGING SMALL LEFT PLEURAL EFFUSION AND ASSOCIATED COMPRESSIVE ATELECTASIS. 3. DEVELOPING GROUND-GLASS AIRSPACE DISEASE INVOLVING THE LEFT UPPER LOBE/ LINGULA AND LEFT LOWER LOBE MAY REPRESENT ASYMMETRIC PULMONARY EDEMA OR SUPERIMPOSED PNEUMONITIS. 4. INDETERMINATE BILATERAL RENAL LESIONS ABOVE. RECOMMEND FURTHER EVALUATION WITH DEDICATED RENAL MRI PRESUMING THERE NO CONTRAINDICATIONS. 5. MODERATELY DISTENDED BLADDER WITH HYPERATTENUATING MATERIAL COULD REPRESENT SLUDGE OR VICARIOUS EXCRETION OF CONTRAST. CORRELATE WITH LABORATORY VALUES. Chest CT 05/12/16 00:00 IMPRESSION: 1. STABLE DEGREE OF EXTENSIVE AIRSPACE DISEASE INVOLVING THE RIGHT LUNG WITH SUBTLE 4.5 CM AREA OF HYPERATTENUATION ALONG THE SUPERIOR MEDIAL MARGIN COULD REPRESENT AN UNDERLYING LUNG MASS. CORRELATE WITH THORACENTESIS RESULTS. 2. STABLE MODERATE TO LARGE RIGHT-SIDED PLEURAL EFFUSION WITH ENLARGING SMALL LEFT PLEURAL EFFUSION AND ASSOCIATED COMPRESSIVE ATELECTASIS. 3. DEVELOPING GROUND-GLASS AIRSPACE DISEASE INVOLVING THE LEFT UPPER LOBE/ LINGULA AND LEFT LOWER LOBE MAY REPRESENT ASYMMETRIC PULMONARY EDEMA OR SUPERIMPOSED PNEUMONITIS. 4. INDETERMINATE BILATERAL RENAL LESIONS ABOVE. RECOMMEND FURTHER EVALUATION WITH DEDICATED RENAL MRI PRESUMING THERE NO CONTRAINDICATIONS. 5. MODERATELY DISTENDED BLADDER WITH HYPERATTENUATING MATERIAL COULD REPRESENT SLUDGE OR VICARIOUS EXCRETION OF CONTRAST. CORRELATE WITH LABORATORY VALUES. Thoracentesis Ultrasound 05/13/16 00:00 IMPRESSION: SUCCESSFUL THORACENTESIS USING ULTRASOUND GUIDANCE. Chest X-Ray 05/13/16 18:37 IMPRESSION: Right greater than left pleural effusions, as detailed above. Stable pulmonary aeration. No acute findings. Assessment & Plan - Diagnosis (1) Sepsis Qualifiers: Sepsis type: sepsis due to unspecified organism Qualified Code(s): A41.9 - Sepsis, unspecified organism Is this a current diagnosis for this admission?: YesPlan: Concern for gram-negative organisms in light of but obstructive pneumonia. (2) Adenocarcinoma Is this a current diagnosis for this admission?: YesPlan: Patient is to have discussion with his oncologist and family tomorrow. (3) Dyslipidemia Is this a current diagnosis for this admission?: YesPlan: Patient currently on simvastatin and will decrease this in light of his nifedipine usage. (4) Essential (primary) hypertension Is this a current diagnosis for this admission?: YesPlan: Patient currently on lisinopril, nifedipine. Blood pressure is relatively well controlled. (5) Malignant pleural effusion Is this a current diagnosis for this admission?: YesPlan: Patient with adenocarcinoma. Unlikely to be positive outcome given his metastatic EFfusion. (6) Postobstructive pneumonia Is this a current diagnosis for this admission?: YesPlan: Concern for gram-negative in light of post obstructive nature. Continue with Zosyn. Continue pulmonary toileting. (7) DVT prophylaxis Is this a current diagnosis for this admission?: Yes - Time Time Spent with patient: 25-34 minutes Medications reviewed and adjusted accordingly: Yes
[2016-05-14] MEDS: TRAZODONE HCL 50 MG TABLET PO SCH (21:25)
[2016-05-14 22:11] LABS: ARTERIAL BLOOD BASE EXCESS 3.6 mmol/L; ARTERIAL BLOOD O2 SATURATION 90.5 % (94-98)
[2016-05-15] MEDS: MORPHINE SULFATE 10 MG/ML INJ IV PRN ×3 (03:20→14:34)
[2016-05-15] MEDS: PIPERACILLIN SODIUM/TAZOBACTAM 4.5 GM in NORMAL SALINE 100 ML IV SCH ×4 (04:35→22:06)
[2016-05-15] MEDS: LANSOPRAZOLE 15 MG TAB.RAP.DR PO SCH ×2 (05:42→18:28)
[2016-05-15] MEDS: IPRATROPIUM/ALBUTEROL 0.5-2.5 MG/3 ML AMPUL NEB SCH ×2 (08:20→16:59)
--- NOTE | 2016-05-15 08:34 | PDOC PROGRESS REPORT ---
Subjective Progress Note for:: 05/15/16 Subjective:: Patient was confused over the weekend, O2 sats came down, is on Ventimask now, for comfort. Today had a long discussion with and daughter who were at bedside, we spent greater than 45 minutes in discussion today. Physical Exam Vital Signs: Temp Pulse Resp BP Pulse Ox 98.4 F 122 H 22 H 145/86 H 90 L 05/14/16 23:57 05/15/16 02:00 05/15/16 00:00 05/14/16 23:57 05/15/16 00:00 Intake & Output 05/14/16 05/15/16 05/16/16 06:59 06:59 06:59 Intake Total 1010 1030 Output Total 850 350 Balance 160 680 Weight 72.3 kg 73.5 kg General appearance: PRESENT: no acute distress, well-developed, well-nourished Head exam: PRESENT: atraumatic, normocephalic Eye exam: PRESENT: conjunctiva pink, EOMI, PERRLA. ABSENT: scleral icterus Ear exam: PRESENT: normal external ear exam Mouth exam: PRESENT: moist, tongue midline Neck exam: ABSENT: carotid bruit, JVD, lymphadenopathy, thyromegaly Respiratory exam: PRESENT: clear to auscultation edmundo. ABSENT: rales, rhonchi, wheezes Cardiovascular exam: PRESENT: RRR. ABSENT: diastolic murmur, rubs, systolic murmur Pulses: PRESENT: normal dorsalis pedis pul Vascular exam: PRESENT: normal capillary refill GI/Abdominal exam: PRESENT: normal bowel sounds, soft. ABSENT: distended, guarding, mass, organolmegaly, rebound, tenderness Rectal exam: PRESENT: deferred Extremities exam: PRESENT: full ROM. ABSENT: calf tenderness, clubbing, pedal edema Neurological exam: PRESENT: alert, awake, oriented to person, oriented to place , oriented to time, oriented to situation, CN II-XII grossly intact. ABSENT: motor sensory deficit Psychiatric exam: PRESENT: appropriate affect, normal mood. ABSENT: homicidal ideation, suicidal ideation Skin exam: PRESENT: dry, intact, warm. ABSENT: cyanosis, rash Results Laboratory Results: 05/14/16 07:09 05/14/16 07:09 05/14/16 21:30 Carbonic Acid 1.38 H HCO3/H2CO3 Ratio 20:1 ABG pH 7.42 ABG pCO2 45.9 H ABG pO2 58.2 L ABG HCO3 28.9 H ABG O2 Saturation 90.5 L ABG Base Excess 3.6 FiO2 50% 05/10/16 14:52 Pleural Fluid - Right Pleural Effusion AFB Smear Concentration - Final 05/10/16 14:52 Pleural Fluid - Right Pleural Effusion Acid Fast Bacilli Smear - Final 05/10/16 14:52 Pleural Fluid - Right Pleural Effusion Gram Stain - Final 05/10/16 14:52 Pleural Fluid - Right Pleural Effusion Body Fluid Culture - Final NO AEROBIC OR ANAEROBIC ORGANISMS RECOVERED Impressions: Abdomen/Pelvis CT 05/12/16 00:00 IMPRESSION: 1. STABLE DEGREE OF EXTENSIVE AIRSPACE DISEASE INVOLVING THE RIGHT LUNG WITH SUBTLE 4.5 CM AREA OF HYPERATTENUATION ALONG THE SUPERIOR MEDIAL MARGIN COULD REPRESENT AN UNDERLYING LUNG MASS. CORRELATE WITH THORACENTESIS RESULTS. 2. STABLE MODERATE TO LARGE RIGHT-SIDED PLEURAL EFFUSION WITH ENLARGING SMALL LEFT PLEURAL EFFUSION AND ASSOCIATED COMPRESSIVE ATELECTASIS. 3. DEVELOPING GROUND-GLASS AIRSPACE DISEASE INVOLVING THE LEFT UPPER LOBE/ LINGULA AND LEFT LOWER LOBE MAY REPRESENT ASYMMETRIC PULMONARY EDEMA OR SUPERIMPOSED PNEUMONITIS. 4. INDETERMINATE BILATERAL RENAL LESIONS ABOVE. RECOMMEND FURTHER EVALUATION WITH DEDICATED RENAL MRI PRESUMING THERE NO CONTRAINDICATIONS. 5. MODERATELY DISTENDED BLADDER WITH HYPERATTENUATING MATERIAL COULD REPRESENT SLUDGE OR VICARIOUS EXCRETION OF CONTRAST. CORRELATE WITH LABORATORY VALUES. Chest CT 05/12/16 00:00 IMPRESSION: 1. STABLE DEGREE OF EXTENSIVE AIRSPACE DISEASE INVOLVING THE RIGHT LUNG WITH SUBTLE 4.5 CM AREA OF HYPERATTENUATION ALONG THE SUPERIOR MEDIAL MARGIN COULD REPRESENT AN UNDERLYING LUNG MASS. CORRELATE WITH THORACENTESIS RESULTS. 2. STABLE MODERATE TO LARGE RIGHT-SIDED PLEURAL EFFUSION WITH ENLARGING SMALL LEFT PLEURAL EFFUSION AND ASSOCIATED COMPRESSIVE ATELECTASIS. 3. DEVELOPING GROUND-GLASS AIRSPACE DISEASE INVOLVING THE LEFT UPPER LOBE/ LINGULA AND LEFT LOWER LOBE MAY REPRESENT ASYMMETRIC PULMONARY EDEMA OR SUPERIMPOSED PNEUMONITIS. 4. INDETERMINATE BILATERAL RENAL LESIONS ABOVE. RECOMMEND FURTHER EVALUATION WITH DEDICATED RENAL MRI PRESUMING THERE NO CONTRAINDICATIONS. 5. MODERATELY DISTENDED BLADDER WITH HYPERATTENUATING MATERIAL COULD REPRESENT SLUDGE OR VICARIOUS EXCRETION OF CONTRAST. CORRELATE WITH LABORATORY VALUES. Thoracentesis Ultrasound 05/13/16 00:00 IMPRESSION: SUCCESSFUL THORACENTESIS USING ULTRASOUND GUIDANCE. Chest X-Ray 05/14/16 00:00 IMPRESSION: RIGHT PLEURAL EFFUSION. NO PNEUMOTHORAX. NO SIGNIFICANT CHANGE. Assessment & Plan - Diagnosis (1) Malignant pleural effusion Is this a current diagnosis for this admission?: YesPlan: Plan for Pleurx catheter placement today, had long discussion about next steps of care, they are considering hospice care strongly, I [facility], and they will be talking with family today, possible DC on home hospice in the next 24-48 hours. - Time Time Spent with patient: 35 or more minutes Critical Time spent with patient: 35 or more minutes
[2016-05-15] MEDS: DOCUSATE SODIUM 100 MG CAPSULE PO SCH ×2 (09:20→18:28)
[2016-05-15] MEDS: NIFEDIPINE 30 MG TAB.ER.24 PO SCH ×2 (09:20→22:05)
[2016-05-15] MEDS: GUAIFENESIN 600 MG TABLET.SA PO SCH ×2 (09:21→22:05)
[2016-05-15] MEDS: LISINOPRIL 10 MG TABLET PO SCH ×2 (09:21→22:05)
[2016-05-15] MEDS: LACTOBACILLUS ACIDOPHILUS 250 MG TAB PO SCH ×2 (09:21→18:28)
--- NOTE | 2016-05-15 13:26 | CONSULTATION REPORT E ---
Consultation Report NAME: MAGDALENO PATEL : 1930 AGE: 86Y DATE: 05/15/2016 ROOM: 431 A TO: LAURA SMITH M.D. FROM: CHEKO LOUIS M.D. Requesting Physician CHIEF COMPLAINT: Recurrent right pleural effusion. 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 The patient has metastatic disease refractory unsuitable for adjuvant therapy, so a palliative care approach has been undertaken. Arrangements are being made for the patient to be taken home with [facility]. PAST MEDICAL AND SURGICAL HISTORY: Obtained and found in the history and physical document. REVIEW OF SYSTEMS: Cannot be provided as the patient is under oxygen. PHYSICAL EXAMINATION: GENERAL: The patient is examined on the fourth floor of [facility]. He is resting. He has not received morphine recently. NEUROLOGIC: Patient does arouse and answers simple questions. He is oriented to person, place, and situation. HEAD: Patient is under face mask oxygen. LUNGS: Diminished breath sounds in both bases, right greater than left. Accessory muscles of respiration utilized. ABDOMEN: Soft. EXTREMITIES: Upper and lower extremities with marked wasting of the tissues. IMPRESSION: Metastatic malignancy likely of pulmonary origin with recurrent right pleural effusion in an 86-year-old white male, now DNR, pursuing palliative care course. I reviewed the record and have spoken with the nursing staff, Dr. Cheko Louis and Dr. Natalia Gallegos as well as the patient and the patient's . Considering the risks, benefits, and alternatives, I believe that the most appropriate course of action is to withhold a Pleurx catheter insertion in this patient who will now be heading home for his final days. The patient does not want a tube inserted in his chest, and the patient's is comfortable with pursuing a noninterventional approach. DICTATING PHYSICIAN: LAURA SMITH M.D. [id number] PHY#: [id number] ID: [id number] JOB#: [id number] ACCT: [id number] cc:Josie LEE M.D. > MTDD
--- NOTE | 2016-05-15 16:34 | PDOC PROGRESS REPORT ---
Subjective Progress Note for:: 05/15/16 Subjective:: awake somewhat disoriented Physical Exam Vital Signs: Temp Pulse Resp BP Pulse Ox 98.3 F 113 H 20 143/71 H 80 L 05/15/16 08:00 05/15/16 08:20 05/15/16 08:20 05/15/16 08:00 05/15/16 08:20 Intake & Output 05/14/16 05/15/16 05/16/16 06:59 06:59 06:59 Intake Total 1010 1030 Output Total 850 350 Balance 160 680 Weight 72.3 kg 73.5 kg General appearance: PRESENT: no acute distress, cooperative, disheveled, thin Head exam: PRESENT: atraumatic, normocephalic Eye exam: PRESENT: conjunctiva pale, EOMI Mouth exam: PRESENT: dry mucosa, neck supple Neck exam: ABSENT: carotid bruit, JVD, lymphadenopathy, thyromegaly Respiratory exam: PRESENT: decreased breath sounds, prolonged expiratory phas, rhonchi, symmetrical, unlabored Cardiovascular exam: PRESENT: RRR, +S1, +S2 Pulses: PRESENT: normal radial pulses GI/Abdominal exam: PRESENT: normal bowel sounds, soft. ABSENT: distended, guarding, mass, organolmegaly, rebound, tenderness Rectal exam: PRESENT: deferred Gentrourinary exam: PRESENT: indwelling catheter Neurological exam: PRESENT: awake Skin exam: PRESENT: dry, warm Results Laboratory Results: 05/14/16 07:09 05/14/16 07:09 05/14/16 21:30 Carbonic Acid 1.38 H HCO3/H2CO3 Ratio 20:1 ABG pH 7.42 ABG pCO2 45.9 H ABG pO2 58.2 L ABG HCO3 28.9 H ABG O2 Saturation 90.5 L ABG Base Excess 3.6 FiO2 50% 05/10/16 14:52 Pleural Fluid - Right Pleural Effusion AFB Smear Concentration - Final 05/10/16 14:52 Pleural Fluid - Right Pleural Effusion Acid Fast Bacilli Smear - Final Impressions: Abdomen/Pelvis CT 05/12/16 00:00 IMPRESSION: 1. STABLE DEGREE OF EXTENSIVE AIRSPACE DISEASE INVOLVING THE RIGHT LUNG WITH SUBTLE 4.5 CM AREA OF HYPERATTENUATION ALONG THE SUPERIOR MEDIAL MARGIN COULD REPRESENT AN UNDERLYING LUNG MASS. CORRELATE WITH THORACENTESIS RESULTS. 2. STABLE MODERATE TO LARGE RIGHT-SIDED PLEURAL EFFUSION WITH ENLARGING SMALL LEFT PLEURAL EFFUSION AND ASSOCIATED COMPRESSIVE ATELECTASIS. 3. DEVELOPING GROUND-GLASS AIRSPACE DISEASE INVOLVING THE LEFT UPPER LOBE/ LINGULA AND LEFT LOWER LOBE MAY REPRESENT ASYMMETRIC PULMONARY EDEMA OR SUPERIMPOSED PNEUMONITIS. 4. INDETERMINATE BILATERAL RENAL LESIONS ABOVE. RECOMMEND FURTHER EVALUATION WITH DEDICATED RENAL MRI PRESUMING THERE NO CONTRAINDICATIONS. 5. MODERATELY DISTENDED BLADDER WITH HYPERATTENUATING MATERIAL COULD REPRESENT SLUDGE OR VICARIOUS EXCRETION OF CONTRAST. CORRELATE WITH LABORATORY VALUES. Chest CT 05/12/16 00:00 IMPRESSION: 1. STABLE DEGREE OF EXTENSIVE AIRSPACE DISEASE INVOLVING THE RIGHT LUNG WITH SUBTLE 4.5 CM AREA OF HYPERATTENUATION ALONG THE SUPERIOR MEDIAL MARGIN COULD REPRESENT AN UNDERLYING LUNG MASS. CORRELATE WITH THORACENTESIS RESULTS. 2. STABLE MODERATE TO LARGE RIGHT-SIDED PLEURAL EFFUSION WITH ENLARGING SMALL LEFT PLEURAL EFFUSION AND ASSOCIATED COMPRESSIVE ATELECTASIS. 3. DEVELOPING GROUND-GLASS AIRSPACE DISEASE INVOLVING THE LEFT UPPER LOBE/ LINGULA AND LEFT LOWER LOBE MAY REPRESENT ASYMMETRIC PULMONARY EDEMA OR SUPERIMPOSED PNEUMONITIS. 4. INDETERMINATE BILATERAL RENAL LESIONS ABOVE. RECOMMEND FURTHER EVALUATION WITH DEDICATED RENAL MRI PRESUMING THERE NO CONTRAINDICATIONS. 5. MODERATELY DISTENDED BLADDER WITH HYPERATTENUATING MATERIAL COULD REPRESENT SLUDGE OR VICARIOUS EXCRETION OF CONTRAST. CORRELATE WITH LABORATORY VALUES. Thoracentesis Ultrasound 05/13/16 00:00 IMPRESSION: SUCCESSFUL THORACENTESIS USING ULTRASOUND GUIDANCE. Chest X-Ray 05/14/16 00:00 IMPRESSION: RIGHT PLEURAL EFFUSION. NO PNEUMOTHORAX. NO SIGNIFICANT CHANGE. Assessment & Plan - Diagnosis (1) Essential (primary) hypertension Is this a current diagnosis for this admission?: Yes (2) Sepsis Qualifiers: Sepsis type: sepsis due to unspecified organism Qualified Code(s): A41.9 - Sepsis, unspecified organism Is this a current diagnosis for this admission?: No (3) Postobstructive pneumonia Is this a current diagnosis for this admission?: NoPlan: was scheduled for bronchoscopy (4) Adenocarcinoma Is this a current diagnosis for this admission?: Yes (5) Malignant pleural effusion Is this a current diagnosis for this admission?: YesPlan: Agree with the family and Dr. Ferrera invasive procedures at this time even a Pleurodex catheter are futile
[2016-05-15] MEDS: TRAZODONE HCL 50 MG TABLET PO SCH (22:05)
--- NOTE | 2016-05-15 23:09 | Palliative Consultation Report ---
Consultation From:: SUSANNAH BARRAZA Consult Reason: Malignant pleural effusion - HPI Chief Complaint: shortness of breath, new diagnosis lung cancer HPI: Palliative care visit 10:00- 10:30 AM 05/15/16 Appreciate consult for this unfortunate 86 year old gentleman who has had cough and shortness of breath for many weeks. He has been treated with antibiotics and tessalon pearls for several weeks, but did not get any better. He has lost weight and gotten very weak. states he insisted on driving himself to hospital when he came. but that was the last energy he had. Since admission, he linares been diagnosed with lung cancer with pleural effusions. He also has some renal lesions on CT. Mr. Evangelista had thoracentesis on 05/13 and is probably going to have pleurex drain placed to contiinue to have effusions drained for comfort. He denies pain for the most part but intermittantly says something is "rubbing" . He has needed oxygen due to dyspnea and has been confused at intervals. Mrs. Evangelista said they are going to take him home with [facility] to support. SHe is brokenhearted and anxious but determined that he needs to be at home. They have been for over 60 years and she says they have a daughter in town who helps her a lot. SHe was able to verbalize some of her fears and grief but she is appreciative of hospice offer to help her. was awake, but ocnfused. He needed non rebreather mask this AM and is still confused. He denies pain and is lying still in the bed. His color is [place] and he has some cough. Onset: Other - two months ago Onset/Duration: Gradual, Persistent Quality of Pain: Dull Severity: Mild Associated Symptoms: Productive cough, Shortness of breath Exacerbated by: Movement Past Medical History(Consults) - General Information Source: Relative, [facility] Records Home Medications: Azithromycin [Zithromax] 500 mg PO DAILY 05/04/16 Benzonatate 200 mg PO TIDP PRN 05/04/16 Furosemide [Lasix] 20 mg PO PRN PRN 05/04/16 Lisinopril [Prinivil] 20 mg PO BID 05/04/16 Nifedipine [Nifedipine ER] 60 mg PO BID 05/04/16 Potassium Chloride 20 meq PO BID 05/04/16 Simvastatin [Zocor 40 mg Tablet] 40 mg PO QPM 05/04/16 Allergies/Adverse Reactions: No Known Allergies Allergy (Unverified 05/04/16 08:12) - Social History Lives with: Spouse/Significant other Family History: Reviewed & Not Pertinent, Hypertension Parental Family History Reviewed: No Children Family History Reviewed: No Sibling(s) Family History Reviewed.: No Smoking Status: Former Smoker Number of Years Smokin Last Time Smoked: 60 Frequency of Alcohol Use: Rare Hx Recreational Drug Use: No Drugs: None - Past Medical History Cardiac Medical History: Reports: Hx Hypercholesterolemia, Hx Hypertension Pulmonary Medical History: Reports: None, Hx Bronchitis EENT Medical History: Reports: None Neurological Medical History: Reports: None Endocrine Medical History: Reports: None Renal/ Medical History: Reports: None. Denies: Hx Peritoneal Dialysis Malignancy Medical History: Reports None GI Medical History: Reports: None Musculoskeltal Medical History: Reports None Skin Medical History: Reports None Psychiatric Medical History: Reports: None Infectious Medical History: Reports: None Hematology: Reports: None - Surgical History Surgical Hx: Negative Past Surgical History: Reports: None Review of systems ROS unobtainable: due to mental statu Ojective:Exam Vital Signs: Temp Pulse Resp BP Pulse Ox 97.6 F 122 H 23 H 139/71 H 90 L 05/15/16 20:00 05/15/16 20:00 05/15/16 20:00 05/15/16 20:00 05/15/16 20:00 Intake & Output 05/14/16 05/15/16 05/16/16 06:59 06:59 06:59 Intake Total 1010 1030 Output Total 850 350 Balance 160 680 Weight 72.3 kg 73.5 kg - General General Appearance: Lethargic In distress: Mild - HEENT Head: Normocephalic, Ecchymosis - Respiratory Respiratory Status: Labored Chest Status: Pain with cough Breath sounds: Rhonchi - Abdominal Inspection: Normal - Psychological Associated symptoms: Confused, Decreased appetite Objective-Diagnostic Laboratory: 05/14/16 07:09 05/14/16 07:09 05/10/16 14:52 Pleural Fluid - Right Pleural Effusion AFB Smear Concentration - Final 05/10/16 14:52 Pleural Fluid - Right Pleural Effusion Acid Fast Bacilli Smear - Final Plan and Recommendation Plan and Recommendation: Plans to go home wth hospice. feels she is cary to care for patient with her daughters help and hopice. She is not afraid to use morphine to keep him comfortable. She is very sad and grieving, in addition to being very tired. Emotional support given and allowed spouse to verbalize her feelings. Patient comfortable with current meds. - Time Spent with Patient Time spent with patient: 15 to 30 Minutes Time: 25 min Greater then 50% spent on Counseling & Coordination of Care: 20 min spent with patient and .
[2016-05-16] MEDS: IPRATROPIUM/ALBUTEROL 0.5-2.5 MG/3 ML AMPUL NEB SCH ×2 (00:07→08:38)
[2016-05-16] MEDS: PIPERACILLIN SODIUM/TAZOBACTAM 4.5 GM in NORMAL SALINE 100 ML IV SCH ×2 (02:49→11:19)
[2016-05-16] MEDS: DIPHENHYDRAMINE HCL 25 MG CAPSULE PO PRN (03:34)
[2016-05-16] MEDS: LANSOPRAZOLE 15 MG TAB.RAP.DR PO SCH (05:34)
--- NOTE | 2016-05-16 08:29 | PDOC PROGRESS REPORT ---
Subjective Progress Note for:: 05/16/16 Subjective:: No acute events overnight, patient still quite confused Physical Exam Vital Signs: Temp Pulse Resp BP Pulse Ox 97.7 F 120 H 22 H 144/62 H 89 L 05/16/16 08:00 05/16/16 08:00 05/16/16 08:00 05/16/16 08:00 05/16/16 08:00 Intake & Output 05/15/16 05/16/16 05/17/16 06:59 06:59 06:59 Intake Total 1030 750 Output Total 350 200 Balance 680 550 Weight 73.5 kg 74.4 kg General appearance: PRESENT: no acute distress, well-developed, well-nourished Head exam: PRESENT: atraumatic, normocephalic Eye exam: PRESENT: conjunctiva pink, EOMI, PERRLA. ABSENT: scleral icterus Ear exam: PRESENT: normal external ear exam Mouth exam: PRESENT: moist, tongue midline Neck exam: ABSENT: carotid bruit, JVD, lymphadenopathy, thyromegaly Respiratory exam: PRESENT: clear to auscultation edmundo. ABSENT: rales, rhonchi, wheezes Cardiovascular exam: PRESENT: RRR. ABSENT: diastolic murmur, rubs, systolic murmur Pulses: PRESENT: normal dorsalis pedis pul Vascular exam: PRESENT: normal capillary refill GI/Abdominal exam: PRESENT: normal bowel sounds, soft. ABSENT: distended, guarding, mass, organolmegaly, rebound, tenderness Rectal exam: PRESENT: deferred Extremities exam: PRESENT: full ROM. ABSENT: calf tenderness, clubbing, pedal edema Neurological exam: PRESENT: alert, awake, oriented to person, oriented to place , oriented to time, oriented to situation, CN II-XII grossly intact. ABSENT: motor sensory deficit Psychiatric exam: PRESENT: appropriate affect, normal mood. ABSENT: homicidal ideation, suicidal ideation Skin exam: PRESENT: dry, intact, warm. ABSENT: cyanosis, rash Results Laboratory Results: 05/14/16 07:09 05/14/16 07:09 05/10/16 14:52 Pleural Fluid - Right Pleural Effusion AFB Smear Concentration - Final 05/10/16 14:52 Pleural Fluid - Right Pleural Effusion Acid Fast Bacilli Smear - Final Impressions: Abdomen/Pelvis CT 05/12/16 00:00 IMPRESSION: 1. STABLE DEGREE OF EXTENSIVE AIRSPACE DISEASE INVOLVING THE RIGHT LUNG WITH SUBTLE 4.5 CM AREA OF HYPERATTENUATION ALONG THE SUPERIOR MEDIAL MARGIN COULD REPRESENT AN UNDERLYING LUNG MASS. CORRELATE WITH THORACENTESIS RESULTS. 2. STABLE MODERATE TO LARGE RIGHT-SIDED PLEURAL EFFUSION WITH ENLARGING SMALL LEFT PLEURAL EFFUSION AND ASSOCIATED COMPRESSIVE ATELECTASIS. 3. DEVELOPING GROUND-GLASS AIRSPACE DISEASE INVOLVING THE LEFT UPPER LOBE/ [place] AND LEFT LOWER LOBE MAY REPRESENT ASYMMETRIC PULMONARY EDEMA OR SUPERIMPOSED PNEUMONITIS. 4. INDETERMINATE BILATERAL RENAL LESIONS ABOVE. RECOMMEND FURTHER EVALUATION WITH DEDICATED RENAL MRI PRESUMING THERE NO CONTRAINDICATIONS. 5. MODERATELY DISTENDED BLADDER WITH HYPERATTENUATING MATERIAL COULD REPRESENT SLUDGE OR VICARIOUS EXCRETION OF CONTRAST. CORRELATE WITH LABORATORY VALUES. Chest CT 05/12/16 00:00 IMPRESSION: 1. STABLE DEGREE OF EXTENSIVE AIRSPACE DISEASE INVOLVING THE RIGHT LUNG WITH SUBTLE 4.5 CM AREA OF HYPERATTENUATION ALONG THE SUPERIOR MEDIAL MARGIN COULD REPRESENT AN UNDERLYING LUNG MASS. CORRELATE WITH THORACENTESIS RESULTS. 2. STABLE MODERATE TO LARGE RIGHT-SIDED PLEURAL EFFUSION WITH ENLARGING SMALL LEFT PLEURAL EFFUSION AND ASSOCIATED COMPRESSIVE ATELECTASIS. 3. DEVELOPING GROUND-GLASS AIRSPACE DISEASE INVOLVING THE LEFT UPPER LOBE/ [place] AND LEFT LOWER LOBE MAY REPRESENT ASYMMETRIC PULMONARY EDEMA OR SUPERIMPOSED PNEUMONITIS. 4. INDETERMINATE BILATERAL RENAL LESIONS ABOVE. RECOMMEND FURTHER EVALUATION WITH DEDICATED RENAL MRI PRESUMING THERE NO CONTRAINDICATIONS. 5. MODERATELY DISTENDED BLADDER WITH HYPERATTENUATING MATERIAL COULD REPRESENT SLUDGE OR VICARIOUS EXCRETION OF CONTRAST. CORRELATE WITH LABORATORY VALUES. Thoracentesis Ultrasound 05/13/16 00:00 IMPRESSION: SUCCESSFUL THORACENTESIS USING ULTRASOUND GUIDANCE. Chest X-Ray 05/14/16 00:00 IMPRESSION: RIGHT PLEURAL EFFUSION. NO PNEUMOTHORAX. NO SIGNIFICANT CHANGE. 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 He will have comfort measures only. - Time Time Spent with patient: 35 or more minutes Critical Time spent with patient: 35 or more minutes Within: within 24 hours
[2016-05-16] MEDS: NIFEDIPINE 30 MG TAB.ER.24 PO SCH (11:19)
[2016-05-16] MEDS: GUAIFENESIN 600 MG TABLET.SA PO SCH (11:19)
[2016-05-16] MEDS: LACTOBACILLUS ACIDOPHILUS 250 MG TAB PO SCH (11:19)
[2016-05-16] MEDS: DOCUSATE SODIUM 100 MG CAPSULE PO SCH (11:19)
[2016-05-16] MEDS: LISINOPRIL 10 MG TABLET PO SCH (11:19)
[2016-05-16 12:16] VITALS: BP 138/75
[2016-05-16] MEDS: MORPHINE SULFATE 10 MG/ML INJ IV PRN (13:02)
[2016-05-16] MEDS ORDERED: MORPHINE SULFATE 10 MG/ML INJ IV PRN (14:05)
[2016-05-16] MEDS: LORAZEPAM INJ 2 MG/1 ML VIAL IV PRN ×2 (14:24→16:17)
[2016-05-16] MEDS ORDERED: SCOPOLAMINE HYDROBROMIDE 1.5 MG PATCH.TD72 TD ONE (14:45)
[2016-05-16] MEDS ORDERED: ATROPINE SULFATE 1% OPH SOLN 5 ML BOTTLE SL SCH (18:00)
--- NOTE | 2016-05-16 23:29 | PDOC PROGRESS REPORT ---
Subjective Progress Note for:: 05/15/16 Subjective:: Patient and family had discussion with Dr. Domingo Greer was determined the patient will go home on hospice. Seen earlier morning rounds. Patient has knocked his oxygen off his face and is hypoxic when I see him. This was replaced patient does report some discomfort and requests morphine. Physical Exam Vital Signs: Selected Entries 05/15/16 08:00 Temperature 98.3 F Temperature Oral Source Pulse Rate 114 H Respiratory 20 Rate Blood Pressure 143/71 H [Upper Arm] O2 Sat by Pulse 84 L Oximetry Oxygen Flow 15 Rate Exam: General: Awake alert and oriented X1, moderate to severe respiratory distress HEENT: AT/NC, PERRL, EOMI, oropharynx is moist, pink, no scleral icterus, no conjunctival injection Neck: No JVD, trachea midline Chest: Asymmetric, tachypnea, clear left lung, absent breath sounds on the right CV: Tachycardic, Regular rate and rhythm, normal S1 and S2, no rub, or gallop Abdomen: Soft, nontender to palpation, nondistended, active bowel sounds; no rebound, rigidity, or guarding Extremities: + cyanosis; mild clubbing;trace edema Neuro: Cranial nerves II through XII are grossly intact without focal deficits; awake alert and oriented X1 Psych: Anxious Results Laboratory Results: 05/14/16 07:09 05/14/16 07:09 Impressions: Abdomen/Pelvis CT 05/12/16 00:00 IMPRESSION: 1. STABLE DEGREE OF EXTENSIVE AIRSPACE DISEASE INVOLVING THE RIGHT LUNG WITH SUBTLE 4.5 CM AREA OF HYPERATTENUATION ALONG THE SUPERIOR MEDIAL MARGIN COULD REPRESENT AN UNDERLYING LUNG MASS. CORRELATE WITH THORACENTESIS RESULTS. 2. STABLE MODERATE TO LARGE RIGHT-SIDED PLEURAL EFFUSION WITH ENLARGING SMALL LEFT PLEURAL EFFUSION AND ASSOCIATED COMPRESSIVE ATELECTASIS. 3. DEVELOPING GROUND-GLASS AIRSPACE DISEASE INVOLVING THE LEFT UPPER LOBE/ [place] AND LEFT LOWER LOBE MAY REPRESENT ASYMMETRIC PULMONARY EDEMA OR SUPERIMPOSED PNEUMONITIS. 4. INDETERMINATE BILATERAL RENAL LESIONS ABOVE. RECOMMEND FURTHER EVALUATION WITH DEDICATED RENAL MRI PRESUMING THERE NO CONTRAINDICATIONS. 5. MODERATELY DISTENDED BLADDER WITH HYPERATTENUATING MATERIAL COULD REPRESENT SLUDGE OR VICARIOUS EXCRETION OF CONTRAST. CORRELATE WITH LABORATORY VALUES. Chest CT 05/12/16 00:00 IMPRESSION: 1. STABLE DEGREE OF EXTENSIVE AIRSPACE DISEASE INVOLVING THE RIGHT LUNG WITH SUBTLE 4.5 CM AREA OF HYPERATTENUATION ALONG THE SUPERIOR MEDIAL MARGIN COULD REPRESENT AN UNDERLYING LUNG MASS. CORRELATE WITH THORACENTESIS RESULTS. 2. STABLE MODERATE TO LARGE RIGHT-SIDED PLEURAL EFFUSION WITH ENLARGING SMALL LEFT PLEURAL EFFUSION AND ASSOCIATED COMPRESSIVE ATELECTASIS. 3. DEVELOPING GROUND-GLASS AIRSPACE DISEASE INVOLVING THE LEFT UPPER LOBE/ [place]ING[place] AND LEFT LOWER LOBE MAY REPRESENT ASYMMETRIC PULMONARY EDEMA OR SUPERIMPOSED PNEUMONITIS. 4. INDETERMINATE BILATERAL RENAL LESIONS ABOVE. RECOMMEND FURTHER EVALUATION WITH DEDICATED RENAL MRI PRESUMING THERE NO CONTRAINDICATIONS. 5. MODERATELY DISTENDED BLADDER WITH HYPERATTENUATING MATERIAL COULD REPRESENT SLUDGE OR VICARIOUS EXCRETION OF CONTRAST. CORRELATE WITH LABORATORY VALUES. Thoracentesis Ultrasound 05/13/16 00:00 IMPRESSION: SUCCESSFUL THORACENTESIS USING ULTRASOUND GUIDANCE. Chest X-Ray 05/14/16 00:00 IMPRESSION: RIGHT PLEURAL EFFUSION. NO PNEUMOTHORAX. NO SIGNIFICANT CHANGE. Assessment & Plan - Diagnosis (1) Sepsis Qualifiers: Sepsis type: sepsis due to unspecified organism Qualified Code(s): A41.9 - Sepsis, unspecified organism Is this a current diagnosis for this admission?: No (2) Adenocarcinoma Is this a current diagnosis for this admission?: YesPlan: Plan to discharge patient home to hospice today when hospice is ready for him. Morphine for comfort. (3) Dyslipidemia Is this a current diagnosis for this admission?: Yes (4) Essential (primary) hypertension Is this a current diagnosis for this admission?: Yes (5) Malignant pleural effusion Is this a current diagnosis for this admission?: Yes (6) Postobstructive pneumonia Is this a current diagnosis for this admission?: No (7) DVT prophylaxis Is this a current diagnosis for this admission?: Yes - Time Time Spent with patient: 15-24 minutes Medications reviewed and adjusted accordingly: Yes Anticipated discharge: Home
--- NOTE | 2016-05-16 23:35 | Death Summary ---
Summary Date : 05/16/16 Time of :: 17:02 Autopsy: No Resuscitation Status: Comfort Measures Only Primary Care Provider: Dr. Huseyin Foster Consulting Provider: Dr. Louis - Final Diagnosis (1) Sepsis Is this a current diagnosis for this admission?: No (2) Adenocarcinoma Is this a current diagnosis for this admission?: Yes (3) Dyslipidemia Is this a current diagnosis for this admission?: Yes (4) Essential (primary) hypertension Is this a current diagnosis for this admission?: Yes (5) Malignant pleural effusion Is this a current diagnosis for this admission?: Yes (6) Postobstructive pneumonia Is this a current diagnosis for this admission?: Yes (7) Acute hypoxemic respiratory failure Is this a current diagnosis for this admission?: Yes Hospital Course:: Patient was sedated 6-year-old male with past medical history of hypertension, hyperlipidemia who reported a 3 month history of cough. Patient failed outpatient azithromycin and was brought to be the to the emergency department and found to be hypoxic. Chest x-ray showed a right middle and lower lobe pneumonia with subsequent pleural effusion and patient was admitted for pneumonia and parapneumonic effusion initially. He underwent CT of the chest on 05/06/2016 which revealed extensive airspace disease in the right lung in the subpulmonic pleural effusion. Patient was seen by pulmonary medicine on 05/08/2016 and underwent thoracocentesis on 05/10/2016. Cytology revealed adenocarcinoma and even at the time of this dictation, stains were still pending to determine the origin of this. It was felt by oncology to possibly be a lung primary. Patient progressively declined and was made comfort measures by his family. He in their company today and [id number]. He was pronounced by two RNs and no autopsy was requested.
[2016-05-19] MEDS ORDERED: SCOPOLAMINE HYDROBROMIDE 1.5 MG PATCH.TD72 TD SCH (10:00)
== END 2016-05-16 17:02 | DRG 871 ==
LOC: ER 08:07 → EH 10:44 → UNDOADMIN 10:47 → EH 10:47 → 4S 14:44
PROVIDERS: ADMIT Emergency Medicine; ATTEND Emergency Medicine
PROC: 0W993ZX Drainage of Right Pleural Cavity, Percutaneous Approach, Diagnostic (ICD-10-PCS; principal; 2016-05-10)
PROC: BB4BZZZ Ultrasonography of Pleura (ICD-10-PCS; 2016-05-10)
DX: A41.9 Sepsis, unspecified organism (principal); J18.1 Lobar pneumonia, unspecified organism; J96.01 Acute respiratory failure with hypoxia; C34.90 Malignant neoplasm of unspecified part of unspecified bronchus or lung; J91.0 Malignant pleural effusion; R65.20 Severe sepsis without septic shock; E78.5 Hyperlipidemia, unspecified; I10 Essential (primary) hypertension; E78.00 Pure hypercholesterolemia, unspecified; R00.1 Bradycardia, unspecified; Z66 Do not resuscitate; Z51.5 Encounter for palliative care; Z79.899 Other long term (current) drug therapy; Z87.891 Personal history of nicotine dependence; Z82.49 Family history of ischemic heart disease and other diseases of the circulatory system
CPT/HCPCS: 32555; 36415; 36600; 71010; 71020; 71260; 74177; 80048; 80053; 81001; 82150; 82550; 82803; 82945; 82947; 83605; 83615; 83735; 84155; 84157; 84484; 85025; 85610; 85730; 87015; 87040; 87070; 87075; 87101; 87116; 87205; 87206; 88305; 88313; 88341; 88342; 89050; 93005; 93010; 93306; 94640; 94660; 94667; 94668; 94799; 96360; 99285; G8978-GP; G8979-GP; J0696; J1644; J1956; J2060; J2250; J2270; J2543; J2704; J3010; J3490; J7030; J7620